=== PATIENT | male | born 1965 | race Two or more races ===

== ENCOUNTER 2023-07-25 17:55 | Emergency (ER) | payer MEDICAID, SELFPAY ==
--- NOTE | ~2023-07-25 | XR_ITS ---
EXAMINATION: XR HAND, LEFT CLINICAL INFORMATION: lt index finger injury; pt states had a nail go through his finger. pt had a bandaged wrapped on first and second digit. COMPARISON: None available. TECHNIQUE: PA, lateral, and oblique views of the left hand. FINDINGS: The bones and soft tissues are normal. No fracture. No radiopaque foreign body. Alignment is anatomic. Joint spaces are maintained. No erosions or soft tissue calcifications. Ring obscures evaluation of the fourth digit proximal phalanx. XR/XR hand LT 2V IMPRESSION: No acute fracture or dislocation. No radiopaque foreign body.
[2023-07-25 18:03] VITALS: BP 135/69; PULSE 73; RESP 18; TEMP 36.6; O2SAT 96; BMI 34.5
--- NOTE | 2023-07-25 18:28 | ED_ITS ---
HPI - Extremity Problem General Chief complaint: Extremity Injury, Upper Stated complaint: nail through finger Time Seen by Provider: 07/25/23 18:27 Source: patient Mode of arrival: ambulatory Limitations: no limitations History of Present Illness HPI Narrative: Patient is a 58 year old assigned male at with no reported medical history presenting to the emergency department today with a left index finger injury. Patient states that he was using a nail gun and it into the left index finger, requiring him to remove it. Patient states that he does not know when his last tetanus shot was. Patient denies any dizziness, lightheadedness, abdominal pain, nausea, vomiting, fever, chills, blurry vision, double vision, loss of vision, chest pain, difficulty breathing, shortness of breath, back pain, night sweats, pain with urination, increased urinary frequency, increased urinary urgency, blood in his urine or stool, syncope or a near syncopal episode, bowel incontinence, bladder incontinence, bowel retention, bladder retention, or any other complaints at this time. MD Complaint: extremity pain Onset (ago): minute(s) Pain Consistency: constant Location: left and other (2nd digit) Severity scale (1-10): 3 Relieving factors: nothing Exacerbating factors: nothing Associated symptoms: denies other symptoms Related Data Previous Rx's ?Medication ?Instructions ?Recorded amoxicillin 875 mg-potassium 1 tab PO BID 10 days #20 tabs 07/25/23 clavulanate 125 mg tablet Allergies Allergy/AdvReac Type Severity Reaction Status Date / Time doxycycline Allergy Intermediate Hives Verified 07/25/23 18:04 Review of Systems 2 Constitutional: Constitutional: Reports no additional constitutional complaints, Denies chills, Denies fever(s) and Denies night sweats Eyes: Eyes: Reports no additional eye complaints, Denies blurry vision, Denies change in vision, Denies diplopia, Denies eye discharge, Denies loss of vision and Denies eye pain ENT: Denies dizziness Cardiovascular: Cardiovascular: Reports no additional cardiovascular complaints, Denies chest pain, Denies lightheadedness, Denies Loss of Consciousness and Denies dyspnea Respiratory: Respiratory: Reports no additional respiratory complaints and Denies dyspnea Gastrointestinal: Gastrointestinal: Reports no additional gastrointestinal complaints, Denies abdominal pain, Denies melena, Denies hematochezia, Denies change in bowel habits and Denies change in stool character Genitourinary: Genitourinary: Reports no additional male genitourinary complaints, Denies hematuria, Denies oliguria, Denies difficulty urinating, Denies dysuria, Denies urinary frequency, Denies urinary hesitancy, Denies urinary incontinence and Denies urinary urgency Musculoskeletal: Musculoskeletal: Reports no additional musculoskeletal complaints, Denies numbness and Denies tingling Comments: puncture wound to the left index finger Neurologic: Denies dizziness, Denies loss of vision, Denies numbness and Denies tingling Psychiatric: Psychiatric: Reports no additional psychiatric complaints Endocrine: Endocrine: Reports no additional endocrine complaints Hematologic/Lymphatic: Hematologic/Lymphatic: Reports no additional hematologic/lymphatic complaints Allergic/Immunologic: Allergic/Immunologic: Reports no additional allergic/immunologic complaints PMFSH Past Medical History Attestation statement: The following information was validated with the patient. Source: old records reviewed and nursing notes reviewed Social History Social History Advance Directives: No Advance Directives Information Provided: No Do you have a plan to hurt others: No Plan Physical Exam 2 Vital Signs: Vital Signs: Last Vital Signs Temp 98.2 F 07/25/23 20:34 Pulse 72 07/25/23 20:34 Resp 17 07/25/23 20:34 BP 123/64 07/25/23 20:34 Pulse Ox 95 07/25/23 20:34 O2 Del Method Room Air 07/25/23 20:34 BMI result Body Mass Index 34.5 Const: General: cooperative, no acute distress, alert and awake Nutritional Appearance: well nourished Orientation/consciousness: patient oriented x3 Limitations: no limitations HEENT: Head: Yes normal to inspection and Yes atraumatic Ears: hearing grossly normal bilaterally and external ears normal General nose exam: Normal external nose present, no nasal discharge noted and no epistaxis Face and sinus: Yes normal facial exam, No abrasion and No laceration Mouth: Normal oral and palatal mucosa present, no drooling and no muffled voice Eyes: General: appearance normal, both eyes and all related structures P eriorbital: periorbital findings normal Eyelids: Yes eyelids normal C onjunctivae: conjunctivae normal Pupils: Equal, round and reactive pupils present EOM: EOMs intact bilaterally Neck: Neck: Yes normal visual inspection, Yes full ROM and Yes no lymphadenopathy Chest: Chest palpation & inspection: normal inspection of the chest Resp: Effort & Inspection: normal respiratory effort and able to speak in complete sentences GI: Inspection: Yes normal to inspection Neuro: General: patient oriented x3 and moves all extremities Cranial nerves: Yes Equal, round and reactive pupils present Cognition (Neuro): n ormal cognition Motor exam (neuro): 5/5 motor strength present throughout Sensory Exam: Normal double simultaneous stimulation for sensation C oordination: [id number] test normal Extrem: General: Yes full ROM and Yes capillary refill normal Hand/finger images: 1. small puncture wound, no active bleeding, no gaping Psych: Appearance: grossly normal Mental Status: mental status grossly normal Affect: normal affect Attitude: cooperative Thought process: N ormal thought process present Thought content: Normal thought content present Insight: Good insight present (Psych) Medications Administered Discontinued Medications Generic Name Dose Route Start Last Admin Trade Name Freq PRN Reason Stop Dose Admin Acetaminophen 975 mg 07/25/23 20:18 07/25/23 20:26 Acetaminophen 325 Mg Tablet PO 07/25/23 20:19 975 mg ONCE ONE Administration Diphtheria/Tetanus/Acell Pertussis 0.5 ml 07/25/23 18:26 07/25/23 19:20 Diphth,Pertus(Acell),Tet Adult 0.5 Ml Syringe IM 07/25/23 18:27 0.5 ml .ONCE ONE Administration Medical Decision Making Medical Decision Making MDM Narrative: Patient is a 58 year old assigned male at with no reported medical history presenting to the emergency department today with a left 2nd digit injury. Patient's physical exam showed a small puncture wound to the left index finger with no active bleeding or gaping. The nail did not go through, there was no exit wound. Patient's right hand x-ray showed no acute process. I explained my physical exam findings as well as all test results to the patient. I answered all questions asked by the patient. I stressed the importance of the patient taking his medication as prescribed. I stressed the importance of the patient following up with his primary care provider. I stressed the importance of the patient returning to the emergency department immediately if his symptoms were to worsen or if he were to develop any dizziness, shortness of breath, difficulty breathing, chest pain, blurry vision, loss of vision, nausea, vomiting, abdominal pain, fever, chills, back pain, or any other complaints. Patient verbalized agreement and understanding with this treatment plan and discharge. Differential Diagnosis Differential Diagnoses: The differential diagnosis associated with the presentation includes Left index finger injury Puncture wound Abrasion Avulsion Laceration Admission/Observation Consideration of admission/observation: Escalation of care including admission/observation considered Patient would have been admitted to the hospital had his work up had any findings where hospital admission was appropriate and his clinical presentation warranted hospital admission. Independent Interpretation I performed an independent interpretation of an: Plain X-Ray Interpretation: My interpretation is in agreement with the radiologist's impression of this imaging study. - EXAMINATION: XR HAND, LEFT CLINICAL INFORMATION: lt index finger injury; pt states had a nail go through his finger. pt had a bandaged wrapped on first and second digit. COMPARISON: None available. TECHNIQUE: PA, lateral, and oblique views of the left hand. FINDINGS: The bones and soft tissues are normal. No fracture. No radiopaque foreign body. Alignment is anatomic. Joint spaces are maintained. No erosions or soft tissue calcifications. Ring obscures evaluation of the fourth digit proximal phalanx. XR/XR hand LT 2V IMPRESSION: No acute fracture or dislocation. No radiopaque foreign body. Dictated By: Kristi Webster Signed By: Electronically signed by Kristi Webster 07/25/232018 Radiology Impression Discussion of test interpretation with radiology: I have reviewed the radiologist's reading. Prescription Management I considered prescription management with: Antibiotic (given the mechanism of injury, patient prescribed a prophylactic antibiotic) Discharge Plan Discharge Clinical Impression: Finger laceration Patient Disposition: Home, Self-Care Instructions: Finger Laceration (ED), Laceration Without Closure (ED) Additional Instructions: Take your antibiotic as prescribed. Follow up with your primary care provider. Return to the emergency department immediately if your symptoms worsen or if you develop any dizziness, shortness of breath, difficulty breathing, chest pain, blurry vision, loss of vision, nausea, vomiting, abdominal pain, fever, chills, back pain, or any other complaints. Prescriptions: New amoxicillin-pot clavulanate 875-125 mg tablet 1 tab PO BID 10 Days Qty: 20 0RF Referrals: [facility] [place] Family Medicine [Provider Group] (Call to establish and follow up with a primary care provider. If you already have a primary care provider, please follow up with them.) [facility] [place] [facility] [Provider Group] [facility] [place] [facility] [Provider Group] Stand Alone Forms: Work/School Release Interventions: ED Discharge Assessment Last Done: 07/25/23 20:34 Discharge Date/Time: 07/25/23 20:34 Print Language: Kiswahili
[2023-07-25] MEDS: Diphth,Pertus(ACell),Tet Adult 0.5 ML SYRINGE IM (19:20)
[2023-07-25] MEDS: Acetaminophen 325 MG TABLET 975 MG PO (20:26)
[2023-07-25 20:33] VITALS: BP 123/64; PULSE 72; RESP 17; TEMP 36.8; O2SAT 95
[2023-07-25 20:34] VITALS: BP 123/64; PULSE 72; RESP 17; TEMP 36.8; O2SAT 95
== END 2023-07-25 20:34 | disposition home or self-care (01) ==
PROVIDERS: Emergency Provider Internal Medicine
DX: S61.231A Puncture wound without foreign body of left index finger without damage to nail, initial encounter (principal); W29.4XXA Contact with nail gun, initial encounter; Y93.9 Activity, unspecified; Y92.9 Unspecified place or not applicable; Y99.9 Unspecified external cause status
CPT/HCPCS: 73120; 90471; 90715; 99284

== ENCOUNTER 2024-01-01 14:47 | Emergency (ER) | payer MEDICAID, SELFPAY ==
--- NOTE | ~2024-01-01 | CT_ITS ---
EXAMINATION: CT HEAD WITHOUT CONTRAST CT CERVICAL SPINE WITHOUT CONTRAST CLINICAL INFORMATION: Fall with head injury and pain COMPARISON: None TECHNIQUE: A noncontrast CT of the head and a noncontrast CT of the cervical spine with sagittal and coronal reformats. This CT examination was performed using dose optimization techniques as appropriate, variously including the following: *Automated exposure control *Adjustment of mA and/or kV according to patient size (this includes techniques or standardized protocols for targeted exams where dose is matched to indication/reason for exam; i.e. extremities or head) *Use of iterative reconstruction technique DLP: 710 and 812 mGy*cm FINDINGS: No intra-axial or extra-axial hemorrhage. No acute territorial infarct. Ventricles and sulci appear normal. Preservation of hanson-white matter differentiation. No mass, mass effect, or midline shift. No fracture. The mastoid air cells and visualized paranasal sinuses are clear. Normal alignment of the cervical spine. No fracture. No prevertebral soft tissue swelling. Moderate degenerative disc disease at C6-C7 and mild degenerative disc disease at C4-C5 and C5-C6. 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 Multilevel facet arthrosis, most prominent on the right at C4-C5. CT/CT head/brain wo IV con IMPRESSION: 1. No acute intracranial abnormality. 2. No cervical spine fracture or traumatic subluxation. Electronically signed by: Sidney Ybarra MD 01/01/2024 03:37 PM EDT
--- NOTE | ~2024-01-01 | XR_ITS ---
EXAMINATION: XR FOREARM, LEFT. XR TIBIA AND FIBULA, RIGHT. CLINICAL INFORMATION: Pain, injury COMPARISON: None. TECHNIQUE: AP and lateral views of the left forearm. AP and lateral views of the right lower leg. FINDINGS: Left forearm: No acute fracture or malalignment. There is an enthesophyte of the olecranon at the triceps tendon insertion. No radiopaque foreign body. Right tibia and fibula: No fracture or malalignment. No radiopaque foreign body. XR/XR tibia fibula RT 2V IMPRESSION: No acute osseous abnormality of the left forearm or right lower leg. Electronically signed by: Sidney Ybarra MD 01/01/2024 03:39 PM EDT
--- NOTE | ~2024-01-01 | CT_ITS ---
EXAMINATION: CT HEAD WITHOUT CONTRAST CT CERVICAL SPINE WITHOUT CONTRAST CLINICAL INFORMATION: Fall with head injury and pain COMPARISON: None TECHNIQUE: A noncontrast CT of the head and a noncontrast CT of the cervical spine with sagittal and coronal reformats. This CT examination was performed using dose optimization techniques as appropriate, variously including the following: *Automated exposure control *Adjustment of mA and/or kV according to patient size (this includes techniques or standardized protocols for targeted exams where dose is matched to indication/reason for exam; i.e. extremities or head) *Use of iterative reconstruction technique DLP: 710 and 812 mGy*cm FINDINGS: No intra-axial or extra-axial hemorrhage. No acute territorial infarct. Ventricles and sulci appear normal. Preservation of hanson-white matter differentiation. No mass, mass effect, or midline shift. No fracture. The mastoid air cells and visualized paranasal sinuses are clear. Normal alignment of the cervical spine. No fracture. No prevertebral soft tissue swelling. Moderate degenerative disc disease at C6-C7 and mild degenerative disc disease at C4-C5 and C5-C6. 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 Multilevel facet arthrosis, most prominent on the right at C4-C5. CT/CT cervical spine wo IV con IMPRESSION: 1. No acute intracranial abnormality. 2. No cervical spine fracture or traumatic subluxation. Electronically signed by: Sidney Ybarra MD 01/01/2024 03:37 PM EDT
--- NOTE | ~2024-01-01 | XR_ITS ---
EXAMINATION: XR FOREARM, LEFT. XR TIBIA AND FIBULA, RIGHT. CLINICAL INFORMATION: Pain, injury COMPARISON: None. TECHNIQUE: AP and lateral views of the left forearm. AP and lateral views of the right lower leg. FINDINGS: Left forearm: No acute fracture or malalignment. There is an enthesophyte of the olecranon at the triceps tendon insertion. No radiopaque foreign body. Right tibia and fibula: No fracture or malalignment. No radiopaque foreign body. XR/XR forearm LT 2V IMPRESSION: No acute osseous abnormality of the left forearm or right lower leg. Electronically signed by: Sidney Ybarra MD 01/01/2024 03:39 PM EDT
[2024-01-01 14:50] VITALS: BP 111/62; PULSE 60; RESP 18; TEMP 36.6; O2SAT 97; BMI 33.3
--- NOTE | 2024-01-01 14:50 | ED.GENADULT ---
HPI - General Adult General Chief complaint: Fall Stated complaint: arm lac, leg pain Time Seen by Provider: 01/01/24 15:33 Source: patient Mode of arrival: ambulatory Limitations: no limitations History of Present Illness ED Provider: Maria Elena Barriga APRN HPI narrative: 58 yo male with no known medical history here with multiple complaints after a fall off a ladder. He was using a chainsaw to cut a branch when the branch broke and he lost his balance falling backwards off a 4 foot ladder. He hit his posterior head. No LOC. Complaining of right leg pain, right forearm pain and left forearm pain with laceration. Tetanus is UTD. NO headache,neck pain, back pain, chest pain, abdominal pain, numbness/weakness/tingling of extremities. Patient is ambulatory. Related Data Previous Rx's ?Medication ?Instructions ?Recorded amoxicillin 875 mg-potassium 1 tab PO BID 10 days #20 tabs 07/25/23 clavulanate 125 mg tablet cephalexin 500 mg capsule 500 mg PO BID #14 caps 01/01/24 Allergies Allergy/AdvReac Type Severity Reaction Status Date / Time doxycycline Allergy Intermediate Hives Verified 01/01/24 14:52 Review of Systems Review of Systems: Yes all other systems are reviewed and are negative Constitutional: Constitutional: Reports no additional constitutional complaints, Denies body ache(s), Denies chills, Denies fever(s), Denies headache(s) and Denies weakness Eyes: Eyes: Reports no additional eye complaints and Denies change in vision ENT: Reports system reviewed and no additional complaints, except as documented, Denies dizziness, Denies headache(s), Denies nasal congestion, Denies nasal discharge and Denies neck pain Cardiovascular: Cardiovascular: Reports no additional cardiovascular complaints, Denies chest pain, Denies leg edema and Denies dyspnea Respiratory: Respiratory: Reports no additional respiratory complaints, Denies cough and Denies dyspnea Gastrointestinal: Gastrointestinal: Reports no additional gastrointestinal complaints, Denies abdominal pain, Denies diarrhea, Denies nausea and Denies vomiting Genitourinary: Genitourinary: Denies urinary incontinence Musculoskeletal: Musculoskeletal: Reports no additional musculoskeletal complaints, Denies back pain, Reports arthralgias, Denies joint swelling, Denies neck pain, Denies numbness and Denies tingling Integumentary/Breasts: Skin/Breast: Reports system reviewed and no additional complaints, except as docu, Denies rash and Reports wounds Neurologic: Reports system reviewed and no additional complaints, except as documented, Denies Abnormal speech present, Denies dizziness, Denies headache(s), Denies numbness, Denies tingling and Denies weakness PMFSH Past Medical History Attestation statement: The following information was validated with the patient. Source: old records reviewed and nursing notes reviewed Social History Social History Advance Directives: No Advance Directives Information Provided: No Do you have a plan to hurt others: No Plan Physical Exam ED Vital Signs: Vital Signs - 24 hr 01/01/24 14:50 01/01/24 16:42 Temperature 97.9 F 97.8 F Pulse Rate 60 54 Respiratory Rate 18 16 Blood Pressure 111/62 122/62 Pulse Oximetry 97 96 Oxygen Delivery Method Room Air Room Air BMI result Body Mass Index 33.3 Const General: cooperative, healthy appearing, comfortable and no acute distress Orientation/consciousness: patient oriented x3 Limitations: no limitations HENMT Head: Yes normal to inspection, No [place]'s sign and No raccoon eyes Ears: hearing grossly normal bilaterally and TM's normal bilaterally General nose exam: Normal external nose present Face and sinus: Yes normal facial exam Mouth: Normal oral and palatal mucosa present Throat: Yes posterior oropharynx normal Eyes General: appearance normal, both eyes and all related structures Pupils: Equal, round and reactive pupils present Neck Other: No midline tenderness/step offs or deformities. Neck: Yes normal visual inspection and Yes full ROM Chest Chest palpation & inspection: normal inspection of the chest Resp Effort & Inspection: normal respiratory effort Auscultation: clear to auscultation bilaterally Cardio Rate: regular rate Rhythm: regular rhythm Peripheral pulses: Peripheral pulses 2+ throughout GI Inspection: Yes normal to inspection Palpation (GI): Soft to palpation and nontender Auscultation: normal bowel sounds General: Yes no CVA tenderness Back/Spine/Pelvis Back: no CVA tenderness Thoracic/Lumbar Spine: thoracic and lumbar spine normal to inspection Skin General skin exam: no rashes or lesions noted Neuro General: patient oriented x3, moves all extremities, no focal motor deficits and normal sensation to monofilament Cranial nerves: Yes CN's II-XII intact bilaterally, Yes Equal, round and reactive pupils present, Yes Bilaterally intact EOM present, Yes Nystagmus not present, Yes Normal facial strength present and Yes Midline tongue present Cognition (Neuro): normal cognition Speech: No Abnormal speech present Gait exam (Neuro): Normal gait present Motor exam (neuro): 5/5 motor strength present throughout Sensory Exam: Normal double simultaneous stimulation for sensation Extrem Elbow/forearm/wrist images: 1. abrasions 2. 3cm laceration. Bleeding controlled. FROM of proximal/distal joints. CMS intact distally. 2+ radial/ulnar pulses Upper/lower leg/hip images: 1. +ecchymosis. Compartment soft/compressible. FROM of proximal/distal joints. CMS intact distally. 2+ DP/PT pulses Course Course Course Narrative: RME performed by Oralia Mckee PA-C. Patient is a 58 year old assigned male at presenting to the emergency department with right leg pain, headache, and left arm pain. Patient states that he was in a tree doing some work with a chain saw and fell, hitting his head, his left arm, and his right lower leg. Detailed physical exam and review of systems are deferred to the independent marketing consultant. Imaging ordered. Patient placed back in the waiting room pending room availability and results. Medications Administered Discontinued Medications Generic Name Dose Route Start Last Admin Trade Name Freq PRN Reason Stop Dose Admin Ibuprofen 600 mg 01/01/24 15:36 01/01/24 15:38 Ibuprofen 600 Mg Tablet PO 01/01/24 15:37 600 mg ONCE ONE Administration Lidocaine HCl 2 ml 01/01/24 16:08 01/01/24 16:18 Lidocaine Hcl 1 % Mpf 2 Ml Vial INFILTRATI 01/01/24 16:09 2 ml ONCE ONE Administration Lidocaine HCl 2 ml 01/01/24 16:08 01/01/24 16:18 Lidocaine Hcl 1 % Mpf 2 Ml Vial INFILTRATI 01/01/24 16:09 2 ml ONCE ONE Administration Procedures Laceration Laceration 1: Site: upper extremity Side (If applicable): left Size (cm): 3 Description: irregular and contaminated Depth: simple, single layer Local Anesthetic: lidocaine 1% Amount of anesthesia used (mL): 5 Pre-repair: wound explored and irrigated extensively (1L NS) Skin layer closed with: vicryl Size (cm): 5-0 Number of sutures: 5 Technique: simple, interrupted Medical Decision Making Medical Decision Making MDM Narrative: 58 yo male with no known medical history here with multiple complaints after a fall off a ladder. He was using a chainsaw to cut a branch when the branch broke and he lost his balance falling backwards off a 4 foot ladder. He hit his posterior head. No LOC. Complaining of [place], right leg pain, right forearm pain and left forearm pain with laceration. Tetanus is UTD. NO neck pain, back pain, chest pain, abdominal pain, numbness/weakness/tingling of extremities. Patient is ambulatory. +various abrasions/area of ecchymosis with soft/compressible compartments and normal CMS. +laceration to left FA Will obtain CT head/ct cervical spine, x-rays of tib/fibula and FA Differential Diagnosis Differential Diagnoses: The differential diagnosis associated with the presentation includes Abrasions, contusion, laceration, retained foreign body Low suspicion for vascular injury, ICH, skull fracture, cervical fracture Admission/Observation Consideration of admission/observation: Escalation of care including admission/observation considered Low suspicion for vascular injury, ICH, skull fracture, cervical fracture requiring advanced imaging, transfer to tertiary care center Independent Interpretation I performed an independent interpretation of an: Plain X-Ray and CT Scan Interpretation: I independently reviewed the CT scan of the x-ray and agree with the radiology report Radiology Impression Discussion of test interpretation with radiology: I have reviewed the radiologist's reading. Radiologist Impression: [place] [id number] CT Scan Report Signed Patient: Alexis Monahan MR#: [id number] : 1965 Acct:[id number] Age/Sex: 58 / M ADM Date: 01/01/24 Loc: HO.ED Attending Dr: Ordering Physician: Oralia Mckee Date of Service: 01/01/24 Procedure(s): CT cervical spine wo IV con Accession Number(s): [id number] cc: Oralia Mckee; Physician,None ~ EXAMINATION: CT HEAD WITHOUT CONTRAST CT CERVICAL SPINE WITHOUT CONTRAST CLINICAL INFORMATION: Fall with head injury and pain COMPARISON: None TECHNIQUE: A noncontrast CT of the head and a noncontrast CT of the cervical spine with sagittal and coronal reformats. This CT examination was performed using dose optimization techniques as appropriate, variously including the following: *Automated exposure control *Adjustment of mA and/or kV according to patient size (this includes techniques or standardized protocols for targeted exams where dose is matched to indication/reason for exam; i.e. extremities or head) *Use of iterative reconstruction technique DLP: 710 and 812 mGy*cm FINDINGS: No intra-axial or extra-axial hemorrhage. No acute territorial infarct. Ventricles and sulci appear normal. Preservation of hanson-white matter differentiation. No mass, mass effect, or midline shift. No fracture. The mastoid air cells and visualized paranasal sinuses are clear. Normal alignment of the cervical spine. No fracture. No prevertebral soft tissue swelling. Moderate degenerative disc disease at C6-C7 and mild degenerative disc disease at C4-C5 and C5-C6. 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 Multilevel facet arthrosis, most prominent on the right at C4-C5. CT/CT cervical spine wo IV con IMPRESSION: 1. No acute intracranial abnormality. 2. No cervical spine fracture or traumatic subluxation. Electronically signed by: Sidney Ybarra MD 01/01/2024 03:37 PM EDT [place] [id number] XRay Report Signed Patient: Alexis Monahan MR#: [id number] : 1965 Acct:[id number] Age/Sex: 58 / M ADM Date: 01/01/24 Loc: HO.ED Attending Dr: Ordering Physician: Oralia Mckee Date of Service: 01/01/24 Procedure(s): XR forearm LT 2V Accession Number(s): [id number] cc: Oralia Mckee; Physician,None ~ EXAMINATION: XR FOREARM, LEFT. XR TIBIA AND FIBULA, RIGHT. CLINICAL INFORMATION: Pain, injury COMPARISON: None. TECHNIQUE: AP and lateral views of the left forearm. AP and lateral views of the right lower leg. FINDINGS: Left forearm: No acute fracture or malalignment. There is an enthesophyte of the olecranon at the triceps tendon insertion. No radiopaque foreign body. Right tibia and fibula: No fracture or malalignment. No radiopaque foreign body. XR/XR forearm LT 2V IMPRESSION: No acute osseous abnormality of the left forearm or right lower leg. Independent Historian Clinical information obtained from an independent historian. History obtained from or confirmed by: Friend Tests considered The following testing was considered but not selected: Low suspicion for vascular injury, ICH, skull fracture, cervical fracture requiring advanced imaging Prescription Management I considered prescription management with: Antibiotic Discharge Plan Discharge Clinical Impression: Laceration of arm, Contusion of leg, right, Abrasion of arm, right Patient Disposition: Home, Self-Care Instructions: Laceration (ED), Contusion in Adults (ED), Abrasion (ED) Additional Instructions: Sutures out in 7-10 days Ice to the affected areas Motrin or Tylenol for pain as needed Return for any severe headache, vomiting, behavior Prescriptions: New cephalexin 500 mg capsule 500 mg PO BID Qty: 14 0RF No Action amoxicillin-pot clavulanate 875-125 mg tablet 1 tab PO BID 10 Days Qty: 20 0RF Referrals: Physician,None [Primary Care Provider] - 1 week Interventions: ED Discharge Assessment Last Done: 01/01/24 16:46 Print Language: Hebrew
[2024-01-01] MEDS: Ibuprofen 600 MG TABLET PO (15:38)
--- NOTE | 2024-01-01 15:39 | PC.NURSE ---
pt a&ox3, c/o lt leg/rt arm pain 6/10 pain, denies head pain.
[2024-01-01] MEDS: Lidocaine HCl 1 % MPF 2 ML VIAL INFILTRATI ×2 (16:18)
--- NOTE | 2024-01-01 16:19 | PC.NURSE ---
povider to administer lido into wound
[2024-01-01 16:42] VITALS: BP 122/62; PULSE 54; RESP 16; TEMP 36.6; O2SAT 96
[2024-01-01 16:46] VITALS: BP 118/63; PULSE 58; RESP 16; TEMP 36.4; O2SAT 96
== END 2024-01-01 16:47 | disposition home or self-care (01) ==
PROVIDERS: Emergency Provider Emergency Medicine
DX: S51.812A Laceration without foreign body of left forearm, initial encounter (principal); S80.11XA Contusion of right lower leg, initial encounter; S40.811A Abrasion of right upper arm, initial encounter; W11.XXXA Fall on and from ladder, initial encounter; Y93.H9 Activity, other involving exterior property and land maintenance, building and construction; Y92.017 Garden or yard in single-family (private) house as the place of occurrence of the external cause; Y99.9 Unspecified external cause status
CPT/HCPCS: 12002; 70450; 72125; 73090; 73590; 99284; J2003

== ENCOUNTER 2024-03-10 13:30 | Outpatient (REF) | payer MEDICAID, SELFPAY | END 2024-03-10 13:31 | disposition home or self-care (01) | LOC: HO.HHCX 13:30 | PROVIDERS: PCP Internal Medicine Geriatric Medicine; Visit Provider Internal Medicine Geriatric Medicine | DX: M25.571 Pain in right ankle and joints of right foot (principal); M54.50 Low back pain, unspecified; G89.29 Other chronic pain | CPT/HCPCS: 72110; 73600 ==

== ENCOUNTER 2024-03-10 13:59 | Outpatient (REF) | payer MEDICAID, SELFPAY ==
[2024-03-10 16:09] LABS: Imm Gran Abs Auto 0.01 X10*3/uL (0.00-0.03); Imm Gran Pct Auto 0.2 % (0.0-0.4); Lymphocytes Absolute Auto 1.1 X10*3/uL (1.2-4.9); MANUAL DIFF FLAG SCAN; PLT CLUMP 1; Red Blood Count 4.29 X10*6/uL (4.60-5.80); SCAN SMEAR FLAG 1
[2024-03-10 16:11] LABS: Basophils Percent Auto 0.4 % (0-2); Eosinophils Absolute Auto 0.4 X10*3/uL (0.0-0.4); Eosinophils Percent Auto 8.2 % (0-4); Hematocrit 37.4 % (42.0-52.0); Hemoglobin 13.8 g/dl (14.0-18.0); Lymphocytes Percent Auto 20.9 % (20-40); Mean Corpuscular HGB Conc 36.9 g/dl (31.0-36.0); Mean Corpuscular Hemoglobin 32.2 pg (27.0-33.0); Mean Corpuscular Volume 87.2 fL (80.0-98.0); Mean Platelet Volume 12.2 fL (9.4-12.4); Monocytes Absolute Auto 0.4 X10*3/uL (0.1-1.2); Monocytes Percent Auto 6.8 % (2-11); Neutrophils Absolute Auto 3.3 x10*3/uL (2.0-8.3); Neutrophils Percent Auto 63.5 % (45-73); Red Cell Distribution Width 12.6 % (11.0-16.0)
[2024-03-10 16:23] LABS: Alanine Aminotransferase 27 U/L (0-40); Albumin Level 4.2 g/dL (3.5-5.0); Alkaline Phosphatase 105 U/L (39-117); Anion Gap 7 (12-20); Aspartate Amino Transferase 38 U/L (5-37); Bilirubin Total 1.1 mg/dL (0.0-1.0); Blood Urea Nitrogen 11 mg/dL (9-16); Calcium 8.9 mg/dL (8.4-10.2); Carbon Dioxide 31 mmol/L (22-29); Chloride 105 mmol/L (96-108); Cholesterol 125 mg/dL (<200); Estimated Glomerular Filt Rate > 60; Glucose Random 78 mg/dL (60-115); HDL Cholesterol 58 mg/dL (>40); LDL Cholesterol Calculated 58 mg/dL (<100); Potassium 4.1 mmol/L (3.3-5.1); Sodium 139 mmol/L (135-145); Total Protein 7.3 g/dL (6.5-8.0); Triglycerides 47 mg/dL (<150)
[2024-03-10 16:39] LABS: Platelet Count 71 X10*3/uL (160-400); White Blood Count 5.1 X10*3/uL (4.8-10.8)
[2024-03-10 16:40] LABS: SLIDE REVIEW VERIFIED
[2024-03-10 16:42] LABS: Prostate Specific Antigen 0.16 ng/mL (<0.05-4.0)
[2024-03-10 22:34] LABS: CT PCR NOT DETECTED (Not Detect.); NG PCR NOT DETECTED (Not Detect.)
[2024-03-11 08:42] LABS: Hepatitis A Antibody IgG REACTIVE (Nonreactive); ~Hepatitis A Antibody IgG 11.31 S/CO (0.00-0.99)
[2024-03-11 08:57] LABS: HBS Num1 0.64 mIU/mL (0-7.99); HIV AB/AG Nonreactive (Nonreactive); HIV Num 1 0.17 S/CO (0.00-0.99); Hepatitis B Surface Antigen Negative (Negative); ~Hepatitis B Surface Antibody NONREACTIVE (Nonreactive)
[2024-03-13 12:22] LABS: RPR Rapid Plasma Reagin NON-REACTIVE (NON-REACTIVE)
[2024-03-13 15:23] LABS: HCV Log PCR <1.18 NOT DETECTED Log IU/mL (NOT DETECTED); HepC Viral Load <15 NOT DETECTED IU/mL (NOT DETECTED)
[2024-03-16 11:57] LABS: Testosterone, Total 315 ng/dL (250-1100)
== END 2024-03-10 14:00 | disposition home or self-care (01) ==
LOC: HO.HHCL 13:59
PROVIDERS: Visit Provider Internal Medicine Geriatric Medicine
DX: F11.20 Opioid dependence, uncomplicated (principal); K46.9 Unspecified abdominal hernia without obstruction or gangrene; F41.8 Other specified anxiety disorders; M54.50 Low back pain, unspecified; G89.29 Other chronic pain; B18.2 Chronic viral hepatitis C; N52.9 Male erectile dysfunction, unspecified; M25.571 Pain in right ankle and joints of right foot; Z98.890 Other specified postprocedural states
CPT/HCPCS: 80053; 80061; 84153; 84403; 85025; 86592; 86706; 86708; 87340; 87389; 87491; 87522; 87591

== ENCOUNTER → 2024-03-20 15:00 | Outpatient (BNVA) | payer MEDICAID, SELFPAY | PROVIDERS: PCP Internal Medicine Geriatric Medicine; Visit Provider Surgery | DX: K43.2 Incisional hernia without obstruction or gangrene (principal) | CPT/HCPCS: 99202 ==

== ENCOUNTER 2024-03-20 15:05 | Outpatient (AMB) | payer MEDICAID, SELFPAY ==
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
[2024-03-20 15:10] VITALS: BP 136/63; BMI 33.3
== END 2024-03-20 15:30 | disposition home or self-care (01) ==
PROVIDERS: PCP Internal Medicine Geriatric Medicine; Visit Provider Surgery
DX: K43.2 Incisional hernia without obstruction or gangrene (principal)
CPT/HCPCS: 99204

== ENCOUNTER 2024-04-21 09:40 | Outpatient (REF) | payer MEDICAID, SELFPAY ==
--- NOTE | ~2024-04-21 | CT_ITS ---
EXAMINATION: CT ABDOMEN AND PELVIS WITHOUT CONTRAST CLINICAL INFORMATION: Preoperative examination for incisional hernia. COMPARISON: None available. TECHNIQUE: Multidetector volumetric imaging was performed from the superior aspect of the liver through the pubic symphysis. Sagittal and coronal reformatted images were obtained on the technologist's workstation. This CT examination was performed using dose optimization techniques as appropriate, variously including the following: *Automated exposure control *Adjustment of mA and/or kV according to patient size (this includes techniques or standardized protocols for targeted exams where dose is matched to indication/reason for exam; i.e. extremities or head) *Use of iterative reconstruction technique FINDINGS: LUNG BASES: The visualized lung bases are unremarkable. LIVER, GALLBLADDER, AND BILIARY TREE: There is a cirrhotic configuration to the liver, with contour lobulation and mildly shrunken appearance. There is a subserosal oval mass arising from segment 6 inferiorly, measuring 2.2 x 2.3 cm in axial plane (series 3, image 18). No definite additional hepatic focal mass. No intrahepatic biliary ductal dilatation. The gallbladder is unremarkable with no evidence of radiopaque gallstones, gallbladder wall thickening, or obvious pericholecystic inflammatory changes. PANCREAS: -Significant atrophy of the head and uncinate process. Otherwise mild atrophy of the body and tail. SPLEEN: -There is splenomegaly, with the spleen measuring 17.2 x 15.0 cm. No focal lesion, within confines of nonenhanced technique. ADRENAL GLANDS: Unremarkable. KIDNEYS AND URETERS: -The kidneys are normal in size, shape, and attenuation. Mild malrotation of the left kidney. No hydronephrosis, hydroureter, or calculi seen. No perinephric stranding. There is a simple exophytic cyst arising from the superior pole of the left kidney measuring 2.2 cm. BLADDER: Unremarkable. GASTROINTESTINAL TRACT: The small and large bowel are unremarkable. The appendix is unremarkable. ABDOMINAL WALL: -There is a supraumbilical midline ventral hernia, containing a nonobstructed, nonincarcerated loop of transverse colon. The hernia sac measures 7.4 cm in transverse by 7.2 cm in craniocaudad dimension. There is a wide diastases. -There is a tiny fat-containing periumbilical hernia just inferior to the larger hernia. -There is a small fat-containing right indirect inguinal hernia. LYMPH NODES: Normal. VASCULAR: -No aortic aneurysm. -There are splenic and splenorenal varices. There are gastric varices. There are small esophageal varices. PELVIC VISCERA: The prostate and seminal vesicles are unremarkable. OSSEOUS STRUCTURES: -No suspicious lytic or blastic bone lesions. -Mild right convex lumbar scoliosis with moderate degenerative spondylosis. Disc vacuum phenomenon noted L1-S1. There are prominent dorsal disc osteophytic complexes at L1-2, L2-3, and smaller at L3-4. These result in severe central canal stenosis at L1-2 and L2-3. -Mild arthritic changes in both hips and SI joints. CT/CT abdomen pelvis wo IV con IMPRESSION: 1. There is a supraumbilical midline ventral hernia containing fat and a loop of nonobstructed transverse colon, with hernia sac measuring 7.4 x 7.2 cm. Just inferior there is a tiny periumbilical hernia containing fat. There is a small moderate size right inguinal indirect fat-containing hernia. 2. Hepatic cirrhosis with varices. There is an exophytic oval mass arising from segment 6 inferiorly, which cannot be characterized further on this exam. Consider correlating with MRI. 3. Splenomegaly. 4. Pancreatic atrophy. 5. Additional ancillary findings as discussed in the body of the report. Electronically signed by: Michael Mercer MD 04/21/2024 10:30 AM JUAN
== END 2024-04-21 09:41 | disposition home or self-care (01) ==
LOC: HO.CT 09:40
PROVIDERS: PCP Internal Medicine Geriatric Medicine; Visit Provider Surgery
DX: K43.2 Incisional hernia without obstruction or gangrene (principal)
CPT/HCPCS: 74176

== ENCOUNTER → 2024-04-21 09:42 | Outpatient (BNV) | payer MEDICAID, SELFPAY | PROVIDERS: PCP Internal Medicine Geriatric Medicine; Visit Provider Radiology Diagnostic Radiology | DX: K43.2 Incisional hernia without obstruction or gangrene (principal) | CPT/HCPCS: 74176 ==

== ENCOUNTER → 2024-04-25 08:56 | Outpatient (BNV) | payer MEDICAID, SELFPAY | PROVIDERS: Admitting Provider Surgery; PCP Internal Medicine Geriatric Medicine; Visit Provider Surgery | DX: K43.2 Incisional hernia without obstruction or gangrene (principal) | CPT/HCPCS: 49595; 99232; 99239; 99499 ==

== ENCOUNTER 2024-05-22 13:05 | Outpatient (AMB) | payer MEDICAID, SELFPAY ==
--- NOTE | 2024-05-22 13:10 | A.OFFVIS_ITS ---
Vital Signs 05/22/24 13:19 Height 5 ft 7 in Weight 196 lb 6 oz BMI 30.8 BP 140/70 H Blood Pressure Location Rt brachial Position Sitting Pulse 71 Intake Visit Reasons: S/P Lg. incisional hernia w/mesh Intake Note: This patient presents for post-op assessment status post large incisional hernia repair with mesh. Pt c/o; reports he was having pain for few days post-op but overall he feels well. 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 incisional hernia w/mesh: Details: He underwent repair of multiple ventral hernias including 1 large ventral hernia with Ventrio mesh last April 25, 2024. He tolerated the procedure well He currently feels well overall. He has good GI functions. [facility] Medical History (Updated 05/22/24 @ 13:18 by Bryce Maloney MD) Incisional hernia Anxiety Depression Back pain Opiate addiction Hepatitis Chronic back pain Surgical History History of incisional hernia repair (~04/25/24) H/O colonoscopy S/P laparotomy Family History Other Family history unknown Social History Household Members: Significant Other Household Members Other:: fiance Housing: House Are you a primary acute care occupational therapist to a significant other at home: No Do you presently have visiting nurse or other home services: Yes (N for methadone) Comment: uses cane on occasion for back issues Patient Tobacco Use Status: Current everyday Tobacco user Tobacco use type: Cigarette Cigarette Packs Per Day: 1 Cigarettes Per Day: 20.0 Years Smoked: 10 Substance Use Type: Marijuana service: No Review of Systems Const Denies chills and Denies fever(s) Card Denies chest pain at rest GI Denies abdominal pain and Denies vomiting Physical Exam Const General: comfortable and no acute distress Resp Effort & Inspection: normal respiratory effort Cardio Rate: regular rate GI Other: Long midline surgical incision is well healed, not infected, repair intact Palpation (GI): Soft to palpation, not firm and no guarding Assessment & Plan Assessment & Plan (1) Incisional hernia: Code(s): K43.2 - Incisional hernia without obstruction or gangrene Category: Medical Plan: Status post repair of multiple incisional hernias including 1 large hernia repaired with a Ventralex mesh. He has 1 long incisional incision. I removed all skin kaiser. The incision is well healed The repair site is intact . I told him to avoid any lifting more than 20 lb for at least another month to decrease the risk of recurrence He can otherwise follow up on a p.r.n. basis. Coding Level of Care Code Global (47156) Diagnoses Incisional hernia K43.2
[2024-05-22 13:19] VITALS: BP 140/70; PULSE 71; BMI 30.8
--- OUTSIDE RECORDS SUMMARY | 2024-05-22 14:54 | XMS_ITS | Encounter Summary ---
Author Organization [employer] Address [address] [facility] [address] [place] [address] Care Team Providers Care Car Varnisher Name Role Phone Name, Praneeth BERGERON Primary Care Provider [phone] Reason for Visit * Reason Comments hospital follow up Encounter Details Date Type Department Care Team ([facility] st Contact Info) Description 05/12/2024 9:30 AM EST Office Visit [facility] [address], [place] [phone] Eulalia Kearney NP [address] [place], [place] [phone] Hospital discharge follow-up (Primary Dx); Constipation, unspecified constipation type; H/O hernia repair Social History Tobacco Use Types Packs/Day Years Used Date Smoking Tobacco: Every Day Cigarettes Alcohol Use Standard Drinks/Week Comments Yes 0 (1 standard drink = 0.6 oz pur e alcohol) 2-3 beers per day Depression Answer Date Recorded Patient Health Questionnaire-9 Score 23 03/09/2024 Patient Health Questionnaire-9 Score 23 03/09/2024 Last PHQ-9: Questionnaire Data Not on file 1 05/10/2023 Housing Stability Answer Date Recorded What is your housing situation today? I do not have housing (Staying with others, in a hotel, in a [place], living outside on the street, on a beach, in a car, or in a park 03/09/[address] you li ve. Do you have problems with any of the following? None of the above 03/09/2024 Food Insecurity Answer Date Recorded Within the past 12 months, y ou worried that your food would run out before you got money to buy more: Often true 02/28/2024 Within the past 12 months,th e food you bought just didn't last and you didn't have enough money to get more: Often true 04/2023 Transportation Answer Date Recorded In the past 12 months, has l ack of transportation kept you from medical appts, meetings, work or from getting things needed for daily living? Yes, it has kept me from non-medical meetings, work, or getting things that I need 03/09/2024 Utilities Answer Date Recorded In the past 12 months, has t he electric, gas, oil or water company threatened to shut off services in your home? I am not sure 03/09/2024 Depression Answer Date Recorded Patient Health Questionnaire-2 Score 6 03/09/2024 Internet Access Answer Date Recorded Internet Access Q1 Yes 02/28/2024 Internet Access Q2 Not on file 02/28/2024 Sex and Gender Information Value Date Recorded Sex Assigned at Male 05/28/2022 9:58 AM EST Legal Sex Male 9:55 AM EST Gender Identity Male 05/28/2022 9:58 AM EST Sexual Orientation Straight 05/28/2022 9: 58 AM EST documented as of this encounter Last Filed Vital Signs Vital Sign Reading Time Taken Comments Blood Pressure 122/66 05/12/2024 10:18 AM EST Pulse 60 05/12/2024 10:18 AM EST Temperature 36.7 ??C (98 ??F) 05/12/2024 10:18 AM EST Respiratory Rate 18 05/12/2024 10:18 AM EST Oxygen Saturation 98% 05/12/2024 10:18 AM EST Inhaled Oxygen Concentration - - Weight 89.8 kg (198 lb) 05/12/2024 10:18 AM EST Height 170.2 cm (5' 7 ) 05/12/2024 10:18 AM EST Body Mass Index 31.01 05/12/2024 10:18 AM EST documented in this encounter Plan of Treatment Upcoming Encounters Date Type Department Care Team (Late st Contact Info) Description 06/14/2024 3:30 PM EDT Office Visit [facility] [address] [place] [address] Name, MD Praneeth [address] [place] [address] documented as of this encounter Visit Diagnoses Diagnosis Hospital discharge follow-up- Primary Other follow-up examination Constipation, unspecified constipation type H/O hernia repair documented in this encounter Additional Health Concerns Assessment Noted Time PHQ-9 Depression Total Score: 23 024 11:56 AM EST documented as of this encounter Care Teams Car Varnisher Relationship Specialty Start Date End Date Name, MD Praneeth [address] [place] [address] PCP - General Internal Medicine 03/09/24 Anjelica Silva Office SecretaryCenter Medical Specialist 04/26/24 documented as of this encounter
--- OUTSIDE RECORDS SUMMARY | 2024-05-22 14:54 | XMS_ITS | Encounter Summary ---
Author Organization [employer] Address [address] [facility] [address] [place] [address] Care Team Providers Care Senior Php Software Developer Name Role Phone Name, Praneeth BERGERON Primary Care Provider [phone] Reason for Visit * Reason Comments Care Coordination [facility] Encounter Details Date Type Department Care Team ([facility] Contact Info) Description 04/26/2024 Telephone [facility] [address] [place] [address] Name, MD Praneeth [address] [place] [address] Care Coordination ([facility] ) Social History Tobacco Use Types Packs/Day Years [...] with others, in a hotel, in a senior care, living outside on the street, on a [...] AM EST documented as of this encounter Progress Notes * Kathrine Mcclure - 04/26/2024 10:03 AM EST PCP Designee has received and reviewed Care Plan from [facility]: Ethnographic Materials Conservator: Anjelica Silva Contact Information: [phone] Care Plan scanned into patient's EHR and notification sent to PCP. documented in this encounter Plan of Treatment Upcoming Encounters Date Type Department Care Team (Late st Contact Info) Description 06/14/2024 3:30 PM EDT Office Visit [facility] [address] [place] [address] Name, MD Praneeth [address] [place] [address] documented as of this encounter Visit Diagnoses Not on filedocumented in this encounter Additional Health Concerns Assessment Noted Time PHQ-9 Depression Total Score: 23 024 11:56 AM EST documented as of this encounter Care Teams Senior Php Software Developer Relationship Specialty Start Date End Date NamePraneeth MD [address] [place] [address] PCP - General Internal Medicine 03/09/24 Anjelica Silva Warehouse Production WorkerFormula Maker 04/26/24 documented as of this encounter
--- OUTSIDE RECORDS SUMMARY | 2024-05-22 14:54 | XMS_ITS | Encounter Summary ---
Author Organization [employer] Address [address] [facility] [address] [place] [address] Care Team Providers Care Product Delivery Specialist Name Role Phone Name, Praneeth BERGERON Primary Care Provider [phone] Reason for Visit * Reason Comments Care Coordination [facility] Encounter Details Date Type Department Care Team (Latest Contact Info) Description 05/10/2024 Patient Outreach [facility] [address] [place] [address] Name, MD Praneeth [address] [place] [address] Care Coordination ([facility]) Social History Tobacco Use Types Packs/Day Years [...] with others, in a hotel, in a long term, living outside on the street, on a [...] as of this encounter Progress Notes * Perla Forbes - 05/10/2024 9:36 AM EST CHW Perla Forbes placed outbound call to patient to follow up on SDOH needs. Patient's name, and address confirmed. Patient states is doing well. Patient stated he received a phone call from [employer] from the referral I submitted, stating that they are going to help with his foodinsecurity, but patient stated they are requiring proof of any diagnosis. CHW will help patient with that info so it can be provided to the program. Patient will call me to after their follow up calltoday. No further questions or concerns. CHW reinforced direct contact information or CM for any additional questions or concerns and extended clinic hours on Mondays and Wednesdays, and Walk-In Urgent Care Located in [facility]. Patient provided with after-hours line for [facility], , which offer nighttime triage service and option to transfer [facility] educational psychology professor [facility]. Patient verbalizes understanding, and able to repeat back to speech writer. A follow up call will be placed within 10 days, patient agrees with plan. documented in this encounter Plan of Treatment Upcoming Encounters Date Type Department Care Team (Late st Contact Info) Description 06/14/2024 3:30 PM EDT Office Visit [facility] [address] [place] [address] Name, MD Praneeth [address] [place] [address] documented as of this encounter Visit Diagnoses Not on filedocumented in this encounter Additional Health Concerns Assessment Noted Time PHQ-9 Depression Total Score: 23 024 11:56 AM EST documented as of this encounter Care Teams Product Delivery Specialist Relationship Specialty Start Date End Date Name, MD Praneeth [address] [place] [id number] PCP - General Internal Medicine 03/09/24 Anjelica Silva Recreation CounselorSmoked Meat Preparer 04/26/24 documented as of this encounter
--- OUTSIDE RECORDS SUMMARY | 2024-05-22 14:54 | XMS_ITS | Encounter Summary ---
Author Organization [employer] Address [address] [facility] 7t [place] [address] Care Team Providers Care Crochet Beader Name Role Phone Name, Praneeth BERGERON Primary Care Provider [phone] Encounter Details Date Type Department Care Team (Late st Contact Info) Description 05/01/2024 Telephone [facility] MEDICINE [address] [place] [address] Amanda Sanchez, RN [address] [place] [address] Social History Tobacco Use Types Packs/Day Years [...] with others, in a hotel, in a custodial, living outside on the street, on a [...] AM EST documented as of this encounter Miscellaneous Notes * Telephone Encounter - Amanda Sanchez RN - 05/01/2024 4:18 PM EST T/C to pt. Advised of need to r/s HDF. Pt agrees to HDF with Blue team provider 05/12/24 at 9:30a. Pt asking about DTA paperwork. Recommended that pt bring paperwork to medical records. documented in this encounter Plan of Treatment Upcoming Encounters Date Type Department Care Team (Late st Contact Info) Description 06/14/2024 3:30 PM EDT Office Visit [facility] MEDICINE [address] [place] [address] Name, MD Praneeth [address] [place] [address] documented as of this encounter Visit Diagnoses Not on filedocumented in this encounter Additional Health Concerns Assessment Noted Time PHQ-9 Depression Total Score: 23 024 11:56 AM EST documented as of this encounter Care Teams Crochet Beader Relationship Specialty Start Date End Date NamePraneeth MD [address] [place] [address] PCP - General Internal Medicine 03/09/24 Anjelica Silva Financial AdvocateLatin Dance Instructor 04/26/24 documented as of this encounter
--- OUTSIDE RECORDS SUMMARY | 2024-05-22 14:54 | XMS_ITS | Encounter Summary ---
Author Organization [employer] Address [address] [facility] 7t [place] [address] Care Team Providers Care Precision Layout Worker Name Role Phone Name, Praneeth BERGERON Primary Care Provider [phone] Reason for Visit * Reason Comments Care Coordination SDOH Encounter Details Date Type Department Care Team (Latest Contact Info) Description 05/04/2024 Patient Outreach [facility] MEDICINE [address] [place] [address] Name, MD Praneeth [address] [place] [address] Care Coordination (SDOH) Social History Tobacco Use [...] with others, in a hotel, in a alf, living outside on the street, on a [...] encounter Progress Notes * Perla Forbes - 05/04/2024 1:11 PM EST CHW Perla Forbes placed call to patient regarding SDOH, patient stated he suffers from food insecurity and often doesn't not have sufficient food for the month. CHW will mail out an updated food pantry list and will also see if qualifies for services through the flex program. CHW send referral and update patient with approval or denial. Patient understood and agreed. documented in this encounter Plan of Treatment Upcoming Encounters Date Type Department Care Team (Late st Contact Info) Description 06/14/2024 3:30 PM EDT Office Visit [facility] MEDICINE [address] [place] [address] Name, MD Praneeth [address] [place] [address] documented as of this encounter Visit Diagnoses Not on filedocumented in this encounter Additional Health Concerns Assessment Noted Time PHQ-9 Depression Total Score: 23 024 11:56 AM EST documented as of this encounter Care Teams Precision Layout Worker Relationship Specialty Start Date End Date Name, MD Praneeth [address] [place] [address] PCP - General Internal Medicine 03/09/24 Anjelica Silva Delivery AnalystElectro Mechanical Technician 04/26/24 documented as of this encounter
--- OUTSIDE RECORDS SUMMARY | 2024-05-22 14:54 | XMS_ITS | Encounter Summary ---
Author Organization [employer] Address [address] [facility] 7t [place] [address] Care Team Providers Care Helper Maintenance Cleaning Name Role Phone Name, Praneeth BERGERON Primary Care Provider [phone] Reason for Visit * Reason Comments Care Coordination SDOH f/u Encounter Details Date Type Department Care Team (Latest Contact Info) Description 05/18/2024 Patient Outreach [facility] MEDICINE [address] [place] [address] Name, MD Praneeth [address] [place] [address] Care Coordination (SDOH f/u) Social History Tobacco Use Types Packs/Day Years [...] with others, in a hotel, in a mcfp, living outside on the street, on a [...] encounter Progress Notes * Perla Forbes - 05/18/2024 10:02 AM EST CHW Perla Forbes placed outbound call to patient to follow up on SDOH needs. Patient's name, and address confirmed. Patient states is doing well. Patient stated he is currently working with [employer], and they are helping him with his nutrition and food resources, patient should receive [employer]eb[employer] card in the mail soon for healthier food options. Patient is really grateful. No further questions or concerns. CHW reinforced direct contact information or CM for any additional questions or concerns and extended clinic hours on Mondays and Wednesdays, and Walk-In Urgent Care Located in [facility]. Patient provided with after-hours line for [facility], , which offer night time triage service and option to transfer to collection advisor provider if needed. Patient verbalizes understanding, and able to repeat back to ad writer. A follow up call willbe placed within 10 days, patient agrees with plan. documented in this encounter Plan of Treatment Upcoming Encounters Date Type Department Care Team (Late st Contact Info) Description 06/14/2024 3:30 PM EDT Office Visit [facility] MEDICINE [address] [place] [address] Name, [place] [address] documented as of this encounter Visit Diagnoses Not on filedocumented in this encounter Additional Health Concerns Assessment Noted Time PHQ-9 Depression Total Score: 23 024 11:56 AM EST documented as of this encounter Care Teams Helper Maintenance Cleaning Relationship Specialty Start Date End Date Name, [place] [address] PCP - General Internal Medicine 03/09/24 Anjelica Silva Manager Labor DeliveryConditioning Coach 04/26/24 documented as of this encounter
--- OUTSIDE RECORDS SUMMARY | 2024-05-22 14:54 | XMS_ITS | Encounter Summary ---
Author Organization [employer] Address [address] [facility] 7 [place] [address] Care Team Providers Care Closer On Name Role Phone Praneeth Vasquez MD Primary Care Provider Reason for Referral * Imaging (Routine) - Authorized Specialty Diagnoses / Procedures Referred By Contac t Referred To Contact Radiology Diagnoses Liver mass Procedures MR Abdomen w/ and w/o Contrast Praneeth Vasquez MD [address] [place] [address] Phone: tel: fax: [address] Phone: tel: fax: Referral ID Status Reason Start Date Expiration Date V isits Requested Visits Authorized [id number] Authorized 04/28/2024 04/28/2025 1 1 Encounter Details Date Type Department Care Team ([facility] st Contact Info) Description 04/27/2024 Telephone [facility] [address] [place], [place] [phone] Praneeth Vasquez MD [address] [place], [place] [phone] Social History Tobacco Use Types Packs/Day Years [...] with others, in a hotel, in a retirement, living outside on the street, on a [...] as of this encounter Miscellaneous Notes * Addendum Note - Praneeth Vasquez MD - 04/28/2024 6:31 AM ESTAddended by: PRANEETH VASQUEZ on: 04/28/2024 06:31 AM Modules accepted: Orders * Telephone Encounter - Praneeth Vasquez MD - 04/28/2024 6:31 AM EST done * Telephone Encounter - Bull Taylor - 04/27/2024 3:41 PM EST Facility is requesting MRI order to be update to MRI Abdomen wwo contrast . Please review and advise . documented in this encounter Plan of Treatment Upcoming Encounters Date Type Department Care Team (Late st Contact Info) Description 06/14/2024 3:30 PM EDT Office Visit [facility] MEDICINE [address] [place] [address] Name, MD Praneeth [address] [place] [address] Scheduled Orders Name Type Priority Associated Diagnoses Orde r Schedule MR Abdomen w/ and w/o Contrast Imaging Routine Liver mass Expected: 04/28/2024, Expires: 04/28/2025 documented as of this encounter Visit Diagnoses Diagnosis Liver mass- Primary Unspecified disorder of liver documented in this encounter Additional Health Concerns Assessment Noted Time PHQ-9 Depression Total Score: 23 024 11:56 AM EST documented as of this encounter Care Teams Closer On Relationship Specialty Start Date End Date Name, MD Praneeth [address] [place] [address] PCP - General Internal Medicine 03/09/24 Anjelica Silva Fashion MarketerMusic Producer 04/26/24 documented as of this encounter
--- OUTSIDE RECORDS SUMMARY | 2024-05-22 14:54 | XMS_ITS | Encounter Summary ---
Author Organization [employer] Address [address] [facility] 7t [place] [address] Care Team Providers Care Chain Sales Consultant Name Role Phone Name, Praneeth BERGERON Primary Care Provider [phone] Reason for Visit * Reason Onset Date Comments Error (VOID this visit) 04/27/2024 Encounter Details Date Type Department Care Team ([facility] st Contact Info) Description 04/27/2024 Telephone [facility] MEDICINE [address] [place] [address] Amanda Sanchez, RN [address] [place] [address] Error (VOID this visit) Social History Tobacco Use Types Packs/Day Years [...] AM EST documented as of this encounter Plan of Treatment Upcoming Encounters Date Type Department Care Team (Late st Contact Info) Description 06/14/2024 3:30 PM EDT Office Visit [facility] MEDICINE [address] [place] [address] Name, MD Praneeth [address] [place] [address] documented as of this encounter Visit Diagnoses Not on filedocumented in this encounter Additional Health Concerns Assessment Noted Time PHQ-9 Depression Total Score: 23 024 11:56 AM EST documented as of this encounter Care Teams Chain Sales Consultant Relationship Specialty Start Date End Date Name, MD Praneeth [address] [place] [address] PCP - General Internal Medicine 03/09/24 Anjelica Silva Suction OperatorBee Raiser 04/26/24 documented as of this encounter
--- OUTSIDE RECORDS SUMMARY | 2024-05-22 14:54 | XMS_ITS | Encounter Summary ---
Author Organization [employer] Address [address] [facility] 7t [place] [address] Care Team Providers Care Audiometrist Name Role Phone Name, Praneeth BERGERON Primary Care Provider [phone] Reason for Visit * Reason Onset Date Comments chartprep 05/02/2024 Encounter Details Date Type Department Care Team ([facility] st Contact Info) Description 05/02/2024 Telephone [facility] MEDICINE [address] [place] [address] Jamison Ellison MA chartprep Social History Tobacco Use Types Packs/Day Years [...] encounter Miscellaneous Notes * Telephone Encounter - Jamison Ellison MA - 05/02/2024 12:14 PM EST Chart Prep Labs: done except Alpha fetoprotein Images: done except MR abdomen Vaccines due: Covid Due, Hep A Due, Hep B Due, Flu Due, and Shingles in pharmacy Due Referrals: Completed Screenings: Colonoscopy Overdue care gaps: Sbirt documented in this encounter Plan of Treatment Upcoming Encounters Date Type Department Care Team (Late st Contact Info) Description 06/14/2024 3:30 PM EDT Office Visit [facility] MEDICINE [address] [place] [address] NamePraneeth MD [address] [place] [address] documented as of this encounter Visit Diagnoses Not on filedocumented in this encounter Additional Health Concerns Assessment Noted Time PHQ-9 Depression Total Score: 23 024 11:56 AM EST documented as of this encounter Care Teams Audiometrist Relationship Specialty Start Date End Date NamePraneeth MD [address] [place] [address] PCP - General Internal Medicine 03/09/24 Anjelica Silva Race Relations ProfessorDriver Retraining Instructor 04/26/24 documented as of this encounter
--- OUTSIDE RECORDS SUMMARY | 2024-05-22 14:54 | XMS_ITS | Encounter Summary ---
Author Organization [employer] Address [address] [facility] 7t [place] [address] Care Team Providers Care Mesh Worker Name Role Phone Name, Praneeth BERGERON Primary Care Provider [phone] Reason for Visit * Reason Onset Date Comments DTA Form 05/18/2024 I called the pat ient, regarding a EAEDC form from the DTA. I asked if he authorizes for sensitive information to be included in the form, because he did not initial the release of information, which would allow for that information to be released. He gave a verbal authorization for the diagnosis of cirrhosis, to be listed on the form. He is requesting to be called, once it is faxed to the DTA. Encounter Details Date Type Department Care Team (Late st Contact Info) Description 05/18/2024 Telephone [facility] MEDICINE [address] [place] [address] Name, MD Praneeth [address] [place] [address] DTA Form (I called the patient, regarding a EAEDC form from the DTA. I asked if he authorizes for sensitive information to be included in the form, because he did not initial the release of information, which would allow for that information to be released. He gave a verbal authorization for the diagnosis of cirrhosis, to be listed on the form. He is requesting to be called, once it is faxed to the DTA.) Social History Tobacco Use Types Packs/Day Years [...] with others, in a hotel, in a fpc, living outside on the street, on a [...] encounter Miscellaneous Notes * Telephone Encounter - Therese Peguero MA - 05/18/2024 11:33 AM EST I called the patient, regarding a EAEDC form from the DTA. I asked if he authorizes for sensitive information to be included in the form, because he did not initial the release of information, which would allow for that information to be disclosed. He gave a verbal authorization for the diagnosis of cirrhosis, to be listed on the form. He is requesting to be called, once it is faxed to the DTA. documented in this encounter Plan of Treatment Upcoming Encounters Date Type Department Care Team (Late st Contact Info) Description 06/14/2024 3:30 PM EDT Office Visit [facility] MEDICINE [address] [place] [address] Name, MD Praneeth [address] [place] [address] documented as of this encounter Visit Diagnoses Not on filedocumented in this encounter Additional Health Concerns Assessment Noted Time PHQ-9 Depression Total Score: 23 024 11:56 AM EST documented as of this encounter Care Teams Mesh Worker Relationship Specialty Start Date End Date Name, MD Praneeth [address] [place] [address] PCP - General Internal Medicine 03/09/24 Anjelica Silva Assisted Living AdministratorAcid Remover 04/26/24 documented as of this encounter
--- OUTSIDE RECORDS SUMMARY | 2024-05-22 14:54 | XMS_ITS | Encounter Summary ---
Author Organization [employer] Address [address] [facility] 7t [place] [address] Care Team Providers Care Hanging Flags Decorator Name Role Phone NamePraneeth MD Primary Care Provider [phone] Reason for Referral * Consultation (Routine) - Authorized Specialty Diagnoses / Procedures Referred By Contmely t Referred To Contact Gastroenterology Diagnoses Cirrhosis of liver without ascites, unspecified hepatic cirrhosis type (CMS/HCC) Liver mass Praneeth Vernon MD [address] [place] [address] Phone: tel: fax: [address] Phone: tel: fax: Referral ID Status Reason Start Date Expiration Date Visits Requested Visits Authorized [id number] Authorized Specialty Services Required 04/27/2024 04/27/2025 6 6 Encounter Details Date Type Department Care Team (Late st Contact Info) Description 04/27/2024 Telephone [facility] MEDICINE [address] [place] [phone] Praneeth Vernon MD [address] [place] [address] [phone] Social History Tobacco Use Types Packs/Day Years [...] with others, in a hotel, in a prison, living outside on the street, on a [...] t he electric, gas, oil or water [employer] threatened to shut off services in your [...] Telephone Encounter - Amanda Sanchez RN - 04/28/2024 9:26 AM EST T/C to pt. Advised of PCP recommendations. Pt agrees to HDF with PCP 05/12/24. Pt agrees to receive Hep B #1 at scheduled HDF. Pt states that he needs PCP to complete DTA form as he is not able to work. Recommended that pt bring form to medical records. Pt reports agreement with plan. Available [facility] [place] scanned into chart by front counter clerk staff. * Telephone Encounter - Praneeth Vernon MD - 04/27/2024 12:32 PM EST I called the patient. We discussed results of recent CT scan of the abdomen. I recommended evaluation with blood work for alpha-fetoprotein and MRI of the abdomen because of the liver mass. Because of the cirrhosis of the liver I recommended referral to GI. I forgot to recommend hepatitis B vaccination. Please contact him so he can come at a later date orwe can do it at his next visit. He was just discharged from the hospital after hernia surgery. Please give him a posthospitalization visit with me or Blue team provider in the coming 1 or 2 weeks. He has appt with me in [place] but that is too far out. documented in this encounter Plan of Treatment Upcoming Encounters Date Type Department Care Team (Late st Contact Info) Description 06/14/2024 3:30 PM EDT Office Visit [facility] MEDICINE [address] [place] [address] Praneeth Vernon MD [address] [place] [address] Scheduled Orders Name Type Priority Associated Diagnoses Orde r Schedule Alpha-Fetoprotein, Tumor Marker Lab Routine Cirrhosis of liver without ascites, unspecified hepatic cirrhosis type (CMS/HCC) Liver mass Expected: 04/27/2024 (Approximate), Expires: 04/27/2025 Scheduled Referrals Name Type Priority Associated Diagnoses Order Schedule Referral to Gastroenterology Outpatient Referral Routine Cirrhosis of liver without ascites, unspecified hepatic cirrhosis type (CMS/HCC) Liver mass Expected: 04/27/2024 (Approximate), Expires: 04/27/2025 documented as of this encounter Visit Diagnoses Diagnosis Cirrhosis of liver without ascites, unspecified hepatic cirrhosis type (CMS/HCC)- Primary Liver mass Unspecified disorder of liver documented in this encounter Additional Health Concerns Assessment Noted Time PHQ-9 Depression Total Score: 23 024 11:56 AM EST documented as of this encounter Care Teams Hanging Flags Decorator Relationship Specialty Start Date End Date Praneeth Vernon MD [address] [place] [address] PCP - General Internal Medicine 03/09/24 Anjelica Silva Bevel Mill OperatorRegional Truck Driver 04/26/24 documented as of this encounter
--- OUTSIDE RECORDS SUMMARY | 2024-05-22 14:55 | XMS_ITS | Clinical Summary ---
Author Organization [employer] Address [address] [facility] [address] [place] [address] Care Team Providers Care Food Service Director Name Role Phone Name, Praneeth BERGERON Primary Care Provider [phone] Allergies Active Allergy Reactions Criticality Noted Date Comments Tetracycline Hives 04/25/2020 Medications * This document contains information received from the source organization and may not represent a complete record from that organization. methadone (Dolophine) 10 MG/5ML solution Take 47 mg by mouth Once per day. Active senna-docusate sodium (Senokot-S) 8.6-50 MG tabletIndications :Constipation, unspecified constipation type Take 1 tablet by mouth Once per day. 30 tablet 1 5 07/12/19 25 Active ibuprofen 600 MG tabletIndications :H/O hernia repair Take 1 tablet (600 mg) by mouth every 6 (six) hours if needed for mild pain. 120 tablet 5 06/12/19 25 Active docusate sodium (Colace) 100 MG capsule Take 1 capsule by mouth 2 times daily. 5 05/12/19 25 Discontinu ed(Alterna te therapy) Active Problems Problem Noted Date Diagnosed Date Cirrhosis of liver without ascites 04/27/2024 Uncomplicated opioid dependence 03/09/2024 Obesity (BMI 30-39.9) 03/11/2022 Tobacco use disorder 03/11/2022 Opioid use disorder 05/01/2020 Chronic hepatitis C without hepatic coma 016 Localized superficial swelling, mass, or lump Sebaceous cyst 09/12/2014 Astigmatism of both eyes 06/27/2014 Preglaucoma 06/27/2014 Presbyopia 06/27/2014 Chronic low back pain 06/20/2014 Overview (03/09/2024): Intermittent to the left buttock, no further Radiculopathy of lumbar region 06/20/2014 Encounters * This document contains information received from the source organization and may not represent a complete record from that organization. Date Type Department Care Team Description 05/18/2024 Telephone [facility] [place] [address] Praneeth Vernon MD DTA Form (I called the patient, regarding [...] once it is faxed to the DTA.) 05/18/2024 Patient Outreach [address] [address] Praneeth Vernon MD Care Coordination (SDOH f/u) 05/12/2024 9:30 AM EST Office Visit [facility] [address] Eulalia Kearney NP Hospital discharge follow-up (Primary Dx); Constipation, unspecified constipation type; H/O hernia repair 05/10/2024 Patient Outreach [address] [address] Praneeth Vernon MD Care Coordination (SDOH) 05/04/2024 Patient Outreach [address] [phone] Praneeth Vernon MD Care Coordination (SDOH) 05/02/[address] [address] Jamison Ellison MA chartprep 05/01/[address] [address] Amanda Sanchez RN 04/27/[address] [address] Amanda Sanchez RN Error (VOID this visit) 04/27/2024 Telephone [facility] [place] [address] Praneeth Vernon MD 04/27/2024 Telephone [facility] MEDICINE [address] [place] [phone] Praneeth Vernon MD 04/26/[address] [address] Praneeth Vernon MD Care Coordination (ICP BH ) 04/21/2024 Orders Only [facility] External Provider, [facility] 04/06/2024 Telephone [facility] MEDICINE [address] [place] [phone] Trini Peterson MA feb recalls 04/03/2024 Patient Outreach [address] [address] Praneeth Vernon MD Care Coordination (SDOH outreach) 03/24/2024 Patient Outreach [facility] MEDICINE [address] [place] [phone] Praneeth Vernon MD Care Coordination (CM/CHW outreach) 03/24/2024 Patient Outreach [facility] MEDICINE [address] [place] [phone] Praneeth Vernon MD 03/10/2024 Orders Only [address] [address] Praneeth Vernon MD 03/09/2024 10:45 AM EST Office Visit [facility] [address] [place] [phone] Praneeth Vernon MD Abdominal hernia without obstruction and without gangrene, recurrence not specified, unspecified hernia type (Primary Dx); Chronic hepatitis C without hepatic coma (CMS/HCC); Uncomplicated opioid dependence (CMS/HCC); Erectile dysfunction, unspecified erectile dysfunction type; Depression with anxiety; Chronic bilateral low back pain without sciatica; Chronic pain of right ankle; History of colonoscopy; Encounter for immunization 03/07/2024 Telephone [facility] MEDICINE [address] [place] [phone] Licha Clark MA Chart Prep 03/02/2024 Patient Outreach [facility]ICINE [address] [place] [phone] Praneeth Vernon MD Care Coordination (SDOH) 02/28/2024 Patient Outreach [facility] [address] [place] [address] NamePraneeth MD Pre-visit Planning (SDOH positive, Tobacco screening positive. ) from Last 3 Months Immunizations Name Administration Dates Next Due HepB-CpG 04/25/2020 Pfizer Covid-19 Vaccine 12+ Bivalent 05/28/2022 Pneumococcal Conjugate PCV 20 03/09/2024 Tdap 04/25/2020 Social History Tobacco Use Types Packs/Day Years Used Date Smoking Tobacco: Every Day Cigarettes Tobacco Cessation:Ready to Q uit: Not Asked; Counseling Given: Not Answered Alcohol Use Standard Drinks/Week Comments Yes 0 [...] with others, in a hotel, in a mcc, living outside on the street, on a [...] Orientation Straight 05/28/2022 9: 58 AM EST Last Filed Vital Signs Vital Sign Reading [...] Mass Index 31.01 05/12/2024 10:18 AM EST Plan of Treatment Upcoming Encounters Date Type Department Care Team (Late st Contact Info) Description 06/14/2024 3:30 PM EDT Office Visit [facility] MED[facility] [address] [place] [phone] Name, MD Praneeth [address] [place] [address] Health Maintenance Due Date Last Done Comments CT Colonography 1967 Colonoscopy 1967 Colorectal Cancer Screening 1965 FIT DNA/Cologuard 1967 FIT 1967 FOBT 1967 Sigmoidoscopy 1967 Alcohol/Substance Use Screening 1979 Hepatitis A Vaccines (1 of 2 - Risk 2-dose series) 06/08/1986 Zoster Vaccines (1 of 2) 06/08/2017 Hepatitis B Vaccines (2 of 2 - CpG 2-dose series) 05/23/2020 04/25/2020 COVID-19 Vaccine (2023-2 5 season) 2023 05/28/2022, 06/19/2020, 05/29/2020 Influenza Vaccine (#1) 2023 Depression Monitoring (PHQ-9) 09/07/2024, 03/09/2024 Depression Screening 03/09/2025 03/09/2024, 03/09/2024 SDOH Screening 03/09/2025 03/09/2024 Tobacco Screening 05/12/2025 05/12/2024 Lipid Panel 03/10/2029 03/10/2024 DTaP/Tdap/Td Vaccines (3 - T d or Tdap) 07/24/2033 07/25/2023, 04/25/2020 RSV Patients and Patients Aged 60 years or older (1 - 1-dose 75+ series) 06/08/2042 Pneumococcal Vaccine: 50+ Years Completed 03/09/2024 HIV Screening Completed 03/10/2024, 10/15/2020, 03/07/2020 HIB Vaccines Aged Out No longer eligi ble based on patient's age to complete this topic HPV Vaccines Aged Out No longer eligi ble based on patient's age to complete this topic IPV Vaccines Aged Out No longer eligi ble based on patient's age to complete this topic Meningococcal Vaccine Aged Out No jv beth eligible based on patient's age to complete this topic RSV under 20 months Aged Out No longe r eligible based on patient's age to complete this topic Rotavirus Vaccines Aged Out No longer eligible based on patient's age to complete this topic Procedures Procedure Name Priority Date/Time Associated Diagnosis Comments CT ABDOMEN PELVIS WO CONTRAST Routine 04/21/2024 9:47 AM EST RPR (MONITOR) W/REFL TITER Routine 03/10/2024 2:08 PM EST Uncomplicated opioid dependence (CMS/HCC) Abdominal hernia without obstruction and without gangrene, recurrence not specified, unspecified hernia type Depression with anxiety Chronic bilateral low back pain without sciatica Chronic hepatitis C without hepatic coma (CMS/HCC) Erectile dysfunction, unspecified erectile dysfunction type Chronic pain of right ankle History of colonoscopy HEPATITIS A ANTIBODY, TOTAL Routine 03/10/2024 2:08 PM EST Uncomplicated opioid dependence (CMS/HCC) Abdominal hernia without obstruction and without gangrene, recurrence not specified, unspecified hernia type Depression with anxiety Chronic bilateral low back pain without sciatica Chronic hepatitis C without hepatic coma (CMS/HCC) Erectile dysfunction, unspecified erectile dysfunction type Chronic pain of right ankle History of colonoscopy HEPATITIS B SURFACE ANTIBODY, QUALITATIVE Routine 03/10/2024 2:08 PM EST Uncomplicated opioid dependence (CMS/HCC) Abdominal hernia without obstruction and without gangrene, recurrence not specified, unspecified hernia type Depression with anxiety Chronic bilateral low back pain without sciatica Chronic hepatitis C without hepatic coma (CMS/HCC) Erectile dysfunction, unspecified erectile dysfunction type Chronic pain of right ankle History of colonoscopy HEPATITIS B SURFACE ANTIGEN, EIA Routine 03/10/2024 2:08 PM EST Uncomplicated opioid dependence (CMS/HCC) Abdominal hernia without obstruction and without gangrene, recurrence not specified, unspecified hernia type Depression with anxiety Chronic bilateral low back pain without sciatica Chronic hepatitis C without hepatic coma (CMS/HCC) Erectile dysfunction, unspecified erectile dysfunction type Chronic pain of right ankle History of colonoscopy HEPATITIS C VIRAL RNA, QUANTITATIVE, REAL-TIME PCR Routine 03/10/2024 2:08 PM EST Uncomplicated opioid dependence (CMS/HCC) Abdominal hernia without obstruction and without gangrene, recurrence not specified, unspecified hernia type Depression with anxiety Chronic bilateral low back pain without sciatica Chronic hepatitis C without hepatic coma (CMS/HCC) Erectile dysfunction, unspecified erectile dysfunction type Chronic pain of right ankle History of colonoscopy HIV 1/2 ANTIGEN/ANTIBODY, FOURTH GENERATION W/RFL Routine 03/10/2024 2:08 PM EST Uncomplicated opioid dependence (CMS/HCC) Abdominal hernia without obstruction and without gangrene, recurrence not specified, unspecified hernia type Depression with anxiety Chronic bilateral low back pain without sciatica Chronic hepatitis C without hepatic coma (CMS/HCC) Erectile dysfunction, unspecified erectile dysfunction type Chronic pain of right ankle History of colonoscopy CHLAMYDIA/N. GONORRHOEAE RNA, TMA, UROGENITAL Routine 03/10/2024 2:08 PM EST Uncomplicated opioid dependence (CMS/HCC) Abdominal hernia without obstruction and without gangrene, recurrence not specified, unspecified hernia type Depression with anxiety Chronic bilateral low back pain without sciatica Chronic hepatitis C without hepatic coma (CMS/HCC) Erectile dysfunction, unspecified erectile dysfunction type Chronic pain of right ankle History of colonoscopy SLIDE REVIEW Routine 03/10/2024 2:03 PM EST TESTOSTERONE, TOTAL, MALES (ADULT), IA Routine 03/10/2024 2:03 PM EST Uncomplicated opioid dependence (CMS/HCC) Abdominal hernia without obstruction and without gangrene, recurrence not specified, unspecified hernia type Depression with anxiety Chronic bilateral low back pain without sciatica Chronic hepatitis C without hepatic coma (CMS/HCC) Erectile dysfunction, unspecified erectile dysfunction type Chronic pain of right ankle History of colonoscopy LIPID PANEL, STANDARD Routine 03/10/2024 2:03 PM EST Uncomplicated opioid dependence (CMS/HCC) Abdominal hernia without obstruction and without gangrene, recurrence not specified, unspecified hernia type Depression with anxiety Chronic bilateral low back pain without sciatica Chronic hepatitis C without hepatic coma (CMS/HCC) Erectile dysfunction, unspecified erectile dysfunction type Chronic pain of right ankle History of colonoscopy PSA, TOTAL Routine 03/10/2024 2:03 PM EST Uncomplicated opioid dependence (CMS/HCC) Abdominal hernia without obstruction and without gangrene, recurrence not specified, unspecified hernia type Depression with anxiety Chronic bilateral low back pain without sciatica Chronic hepatitis C without hepatic coma (CMS/HCC) Erectile dysfunction, unspecified erectile dysfunction type Chronic pain of right ankle History of colonoscopy COMPREHENSIVE METABOLIC PANEL Routine 03/10/2024 2:03 PM EST Uncomplicated opioid dependence (CMS/HCC) Abdominal hernia without obstruction and without gangrene, recurrence not specified, unspecified hernia type Depression with anxiety Chronic bilateral low back pain without sciatica Chronic hepatitis C without hepatic coma (CMS/HCC) Erectile dysfunction, unspecified erectile dysfunction type Chronic pain of right ankle History of colonoscopy CBC WITH AUTO DIFFERENTIAL Routine 03/10/2024 2:03 PM EST Uncomplicated opioid dependence (CMS/HCC) Abdominal hernia without obstruction and without gangrene, recurrence not specified, unspecified hernia type Depression with anxiety Chronic bilateral low back pain without sciatica Chronic hepatitis C without hepatic coma (CMS/HCC) Erectile dysfunction, unspecified erectile dysfunction type Chronic pain of right ankle History of colonoscopy XR ANKLE 2 VIEWS RIGHT Routine 1:32 PM EST Chronic pain of right ankle XR LUMBAR SPINE COMPLETE 4+ VIEWS Routine 03/10/2024 1:32 PM EST Chronic bilateral low back pain without sciatica from Last 3 Months Results * CT Abdomen Pelvis w/o Contrast (04/21/2024 9:47 AM EST) Anatomical Region Laterality Modality Body, Pelvis, Abdomen Computed T omography 04/21/2024 9:47 AM EST Narrative 04/21/2024 10:33 AM EST ? [facility] ?[address] ?[place] [address] ? CT Scan Report ? Signed ? Patient: Alexis Monahan ?MR#: [id number] ? : 1965 ?Acct:[id number] ? Age/Sex: 58 / M ?ADM Date: 04/21/24 ? Loc: HO.CT ? Attending Dr: Bryce Maloney MD ? Ordering Physician: Bryce Maloney MD ?? Date of Service: 04/21/24 ?? Procedure(s): CT abdomen pelvis wo IV con ?? Accession Number(s): [id number] ? cc: Bryce Maloney MD; Praneeth Vernon MD ? Report Number: ?? [id number]: Total DLP = ??541.00 mGy-cm ?? EXAMINATION: ?? CT ABDOMEN AND PELVIS WITHOUT CONTRAST ? CLINICAL INFORMATION: ?? Preoperative examination for incisional hernia. ? COMPARISON: ?? None available. ? TECHNIQUE: ?? Multidetector volumetric imaging was performed from the superior aspect ?? of the liver through the pubic symphysis. Sagittal and coronal ?? reformatted images were obtained on the technologist's workstation. ? This CT examination was performed using dose optimization techniques as ?? appropriate, variously including the following: ?? *Automated exposure control ?? *Adjustment of mA and/or kV according to patient size (this includes ?? techniques or standardized protocols for targeted exams where dose is ?? matched to indication/reason for exam; i.e. extremities or head) ?? *Use of iterative reconstruction technique ? FINDINGS: ?? LUNG BASES: The visualized lung bases are unremarkable. ? LIVER, GALLBLADDER, AND BILIARY TREE: There is a cirrhotic ?? configuration to the liver, with contour lobulation and mildly shrunken ?? appearance. There is a subserosal oval mass arising from segment 6 ?? inferiorly, measuring 2.2 x 2.3 cm in axial plane (series 3, image 18). ?? No definite additional hepatic focal mass. No intrahepatic biliary ?? ductal dilatation. The gallbladder is unremarkable with no evidence of ?? radiopaque gallstones, gallbladder wall thickening, or obvious ?? pericholecystic inflammatory changes. ? PANCREAS: ?? -Significant atrophy of the head and uncinate process. Otherwise mild ?? atrophy of the body and tail. ? SPLEEN: ?? -There is splenomegaly, with the spleen measuring 17.2 x 15.0 cm. No ?? focal lesion, within confines of nonenhanced technique. ? ADRENAL GLANDS: Unremarkable. ? KIDNEYS AND URETERS: ?? -The kidneys are normal in size, shape, and attenuation. Mild ?? malrotation of the left kidney. No hydronephrosis, hydroureter, or ?? calculi seen. No perinephric stranding. ??There is a simple exophytic ?? cyst arising from the superior pole of the left kidney measuring 2.2 ?? cm. ? BLADDER: Unremarkable. ? GASTROINTESTINAL TRACT: The small and large bowel are unremarkable. The ?? appendix is unremarkable. ? ABDOMINAL WALL: ?? -There is a supraumbilical midline ventral hernia, containing a ?? nonobstructed, nonincarcerated loop of transverse colon. The hernia sac ?? measures 7.4 cm in transverse by 7.2 cm in craniocaudad dimension. ?? There is a wide diastases. ?? -There is a tiny fat-containing periumbilical hernia just inferior to ?? the larger hernia. ?? -There is a small fat-containing right indirect inguinal hernia. ? LYMPH NODES: Normal. ? VASCULAR: ?? -No aortic aneurysm. ?? -There are splenic and splenorenal varices. There are gastric varices. ?? There are small esophageal varices. ? PELVIC VISCERA: The prostate and seminal vesicles are unremarkable. ? OSSEOUS STRUCTURES: ?? -No suspicious lytic or blastic bone lesions. ?? -Mild right convex lumbar scoliosis with moderate degenerative ?? spondylosis. Disc vacuum phenomenon noted L1-S1. There are prominent ?? dorsal disc osteophytic complexes at L1-2, L2-3, and smaller at L3-4. ?? These result in severe central canal stenosis at L1-2 and L2-3. ?? -Mild arthritic changes in both hips and SI joints. ? CT/CT abdomen pelvis wo IV con ?? IMPRESSION: ?? 1. There is a supraumbilical midline ventral hernia containing fat and ?? a loop of nonobstructed transverse colon, with hernia sac measuring 7.4 ?? x 7.2 cm. Just inferior there is a tiny periumbilical hernia containing ?? fat. There is a small moderate size right inguinal indirect ?? fat-containing hernia. ?? 2. Hepatic cirrhosis with varices. There is an exophytic oval mass ?? arising from segment 6 inferiorly, which cannot be characterized ?? further on this exam. Consider correlating with MRI. ?? 3. Splenomegaly. ?? 4. Pancreatic atrophy. ?? 5. Additional ancillary findings as discussed in the body of the report. ? Electronically signed by: ??Michael Mercer MD ??04/21/2024 10:30 AM EST RP ?? Workstation: [id number] ? Dictated By: ?Michael Mercer MD ? Signed By: ?<Electronically signed by Michael Mercer MD in OV> ?04/21/24 1030 ? DD/ 0947 ? TD/TT: 04/21/24 0955 ? Igniter Assembler: ? Procedure Note Slim Neff - 04/21/[address] [address] [address] Scan Report Signed Patient: Alexis Monahan#: [id number] : 1965Acct:[id number] Age/Sex: 58 / MADM Date: 04/21/24 Loc: HO.CT Attending Dr: Bryce Maloney MD Ordering Physician: Bryce Maloney MD Date of Service: 04/21/24 Procedure(s): CT abdomen pelvis wo IV con Accession Number(s): [id number] cc: Bryce Maloney MD; Name,Praneeth Report Number: [id number]: Total DLP = 541.00 mGy-cm EXAMINATION: CT ABDOMEN AND PELVIS WITHOUT CONTRAST CLINICAL INFORMATION: Preoperative examination for incisional hernia. COMPARISON: None available. TECHNIQUE: Multidetector volumetric imaging was performed from the superior aspect of the liver through the pubic symphysis. Sagittal and coronal reformatted images were obtained on the technologist's workstation. This CT examination was performed using dose optimization techniques as appropriate, variously including the following: *Automated exposure control *Adjustment of mA and/or kV according to patient size (this includes techniques or standardized protocols for targeted exams where dose is matched to indication/reason for exam; i.e. extremities or head) *Use of iterative reconstruction technique FINDINGS: LUNG BASES: The visualized lung bases are unremarkable. LIVER, GALLBLADDER, AND BILIARY TREE: There is a cirrhotic configuration to the liver, with contour lobulation and mildly shrunken appearance. There is a subserosal oval mass arising from segment 6 inferiorly, measuring 2.2 x 2.3 cm in axial plane (series 3, image 18). No definite additional hepatic focal mass. No intrahepatic biliary ductal dilatation. The gallbladder is unremarkable with no evidence of radiopaque gallstones, gallbladder wall thickening, or obvious pericholecystic inflammatory changes. PANCREAS: -Significant atrophy of the head and uncinate process. Otherwise mild atrophy of the body and tail. SPLEEN: -There is splenomegaly, with the spleen measuring 17.2 x 15.0 cm. No focal lesion, within confines of nonenhanced technique. ADRENAL GLANDS: Unremarkable. KIDNEYS AND URETERS: -The kidneys are normal in size, shape, and attenuation. Mild malrotation of the left kidney. No hydronephrosis, hydroureter, or calculi seen. No perinephric stranding. There is a simple exophytic cyst arising from the superior pole of the left kidney measuring 2.2 cm. BLADDER: Unremarkable. GASTROINTESTINAL TRACT: The small and large bowel are unremarkable. The appendix is unremarkable. ABDOMINAL WALL: -There is a supraumbilical midline ventral hernia, containing a nonobstructed, nonincarcerated loop of transverse colon. The hernia sac measures 7.4 cm in transverse by 7.2 cm in craniocaudad dimension. There is a wide diastases. -There is a tiny fat-containing periumbilical hernia just inferior to the larger hernia. -There is a small fat-containing right indirect inguinal hernia. LYMPH NODES: Normal. VASCULAR: -No aortic aneurysm. -There are splenic and splenorenal varices. There are gastric varices. There are small esophageal varices. PELVIC VISCERA: The prostate and seminal vesicles are unremarkable. OSSEOUS STRUCTURES: -No suspicious lytic or blastic bone lesions. -Mild right convex lumbar scoliosis with moderate degenerative spondylosis. Disc vacuum phenomenon noted L1-S1. There are prominent dorsal disc osteophytic complexes at L1-2, L2-3, and smaller at L3-4. These result in severe central canal stenosis at L1-2 and L2-3. -Mild arthritic changes in both hips and SI joints. CT/CT abdomen pelvis wo IV con IMPRESSION: 1. There is a supraumbilical midline ventral hernia containing fat and a loop of nonobstructed transverse colon, with hernia sac measuring 7.4 x 7.2 cm. Just inferior there is a tiny periumbilical hernia containing fat. There is a small moderate size right inguinal indirect fat-containing hernia. 2. Hepatic cirrhosis with varices. There is an exophytic oval mass arising from segment 6 inferiorly, which cannot be characterized further on this exam. Consider correlating with MRI. 3. Splenomegaly. 4. Pancreatic atrophy. 5. Additional ancillary findings as discussed in the body of the report. Electronically signed by: Michael Mercer MD 04/21/2024 10:30 AM [facility] Dictated By: Michael Mercer MD Signed By: <Electronically signed by Michael Mercer MD in OV> 04/21/24 1030 DD/ 0947 TD/TT: 04/21/24 0955 Igniter Assembler: [facility] External Provider IMG CT PROCEDURES Final Result * Hepatitis C Viral RNA, Quantitative, Real-Time PCR (03/10/2024 2:08 PM EST) [facility] Hepatitis C Viral Load <15 NOT DETECTED NOT DETECTED IU/mL [facility] HCV Log PCR <1.18 NOT DETECTED NOT DETECTED Log IU/mL [facility] Comment:For additional infor griselda, please refer [email or web address](This link is being provided for informational/educational purposes only.)THIS TEST WAS PERFORMED AT:[employer] [place] [id number] SIMMONS MD Blood Venous blood specimen / Unknown 03/10/2024 2:08 PM EST 03/10/2024 3:56 PM EST us Praneeth Vernon MD LAB BLOOD ORDERABLES Final Resul t Performing Organization Address [facility]/ZIP Co de Phone Number [facility] [address] [place] [phone] * Hepatitis A Antibody, Total (03/10/2024 2:08 PM EST) [facility] Hepatitis A Antibody IgG REACTIVE Nonreactive [facility] Comment:The presence of IgG anti-HAV implies past HAV infection(recent or distant) or vaccination against HAV. Blood Venous blood specimen / Unknown 03/10/2024 2:08 PM EST 03/10/2024 3:56 PM EST us Praneeth Vernon MD LAB BLOOD ORDERABLES Final Resul t Performing Organization Address [facility] [facility] Co de Phone Number [facility] [address] [place] [phone] * Chlamydia/N. Gonorrhoeae RNA, TMA, Urogenitial (03/10/2024 2:08 PM EST) [facility] CT PCR NOT DETECTED Not Detect. [facility] Comment:A not detected test result does not exclude the possibilityof infection because test results can be affected byimproper specimen collection, concurrent antibiotic therapy,or the number of organisms in the specimen which may bebelow the sensitivity of the test. As with many diagnostictests, results from the Xpert CT/NG assay should beinterpreted in conjunction with other laboratory andclinical data available to the clinician.Xpert CT/NG performance has not been evaluated in patientsless than 14 years of age. The assay should not be used forthe evaluationof suspected sexual abuse or for other medico-legalindications. Additional testing is recommended in anycircumstance when false positive or false negative resultscould lead to adverse medical, social or psychologicalconsequences. NG PCR NOT DETECTED Not Detect. [facility] Comment:A not detected test result does not exclude the possibilityof infection because test results can be affected byimproper specimen collection, concurrent antibiotic therapy,or the number of organisms in the specimen which may bebelow the sensitivity of the test. As with many diagnostictests, results from the Xpert CT/NG assay should beinterpreted in conjunction with other laboratory andclinical data available to the clinician.Xpert CT/NG performance has not been evaluated in patientsless than 14 years of age. The assay should not be used forthe evaluationof suspected sexual abuse or for other medico-legalindications. Additional testing is recommended in anycircumstance when false positive or false negative resultscould lead to adverse medical, social or psychologicalconsequences. Urine, Random 03/10/2024 2:0 8 PM EST 03/10/2024 3:54 PM EST Narrative [facility] - 03/10/2024 10:34 PM EST Urine Praneeth Vernon MD LAB MICROBIOLOGY - GENERAL ORDER ALLEN Final Result [facility] [address] [place] [phone] * Hepatitis B surface antigen, EIA (03/10/2024 2:08 PM EST) Hepatitis B Surface Ag Negative Negative [facility] Blood Venous blood specimen / Unknown 03/10/2024 2:08 PM EST 03/10/2024 3:56 PM EST us Praneeth Vernon MD LAB BLOOD ORDERABLES Final Resul t Performing Organization Address [facility]/ZIP Co de Phone Number [facility] [address] [place] [phone] * RPR (Monitor) with Reflex to??Titer (03/10/2024 2:08 PM EST) RPR (Monitor) w/Refl Titer NON-REACTI VE NON-REACT JONATHAN [facility] Comment:THIS TEST WAS PERFOR MED AT:[employer] [place] [phone] SIMMONS MD Rapid Plasma Reagin Ab Titer TNP [facility] Blood Venous blood specimen / Unknown 03/10/2024 2:08 PM EST 03/10/2024 3:56 PM EST Praneeth Vernon MD LAB BLOOD ORDERABLES Final Resul t Performing Organization Address [facility] Co de Phone Number [facility] [address] [place] [phone] * HIV-1/2 Antigen and Antibodies, Fourth Generation, with Reflexes (03/10/2024 2:08 PM EST) HIV AB/AG Nonreactive Nonreactive [facility] Comment:HIV-1 p24 Ag and/or HIV-1/HIV-2 Ab not detected.A test result that is nonreactive does not exclude thepossibility of exposure to or infection with HIV-1 and/orHIV-2. Nonreactive results in this assay for individualswith prior exposure to HIV-1 and/or HIV-2 may be due toantigen and antibody levels that are below the limit ofdetection of this assay.The Conjure HIV Ag/Ab Combo assay result andsupplemental assay results should be interpreted inconjunction with the patient's clinical presentation,history and other laboratory results. If the results areinconsistent with clinical evidence, additional testing issuggested to confirm the result. Blood Venous blood specimen / Unknown 03/10/2024 2:08 PM EST 03/10/2024 3:56 PM EST us Praneeth Vernon MD LAB BLOOD ORDERABLES Final Resul t Performing Organization Address [facility] Co de Phone Number [facility] [address] [place] [phone] * Hepatitis B Surface Antibody, Qualitative (03/10/2024 2:08 PM EST) ~Hepatitis B Surface Antibody NONREACTIVE Nonreactive [facility] Comment:Nonreactive: < 8.00 mIU/mL Blood Venous blood specimen / Unknown 03/10/2024 2:08 PM EST 03/10/2024 3:56 PM EST us Praneeth Vernon MD LAB BLOOD ORDERABLES Final Resul t Performing Organization Address [facility] Co de Phone Number [facility] [address] [place] [phone] * Slide Review (03/10/2024 2:03 PM EST) Slide Review VERIFIED [facility] 03/10/2024 2:03 PM EST 03/10/2024 3:56 PM EST Result [facility] us Praneeth Vernon MD LAB BLOOD ORDERABLES Final Resul t Performing Organization Address [facility] de Phone Number [facility] [address] [place] [phone] * (ABNORMAL) CBC auto differential (03/10/2024 2:03 PM EST) White Blood Count 5.1 4.8 - 10.8 X10*3/uL [facility] Red Blood Count 4.29(L) 4.60 - 5.80 X10*6/uL [facility] Hemoglobin 13.8(L) 14.0 - 18.0 g/dl [facility] Hematocrit 37.4(L) 42.0 - 52.0 % [facility] Mean Corpuscular Volume 87.2 80.0 - 98.0 fL [facility] Mean Corpuscular Hemoglobin 32.2 27.0 - 33.0 pg [facility] Mean Corpuscular HGB Conc 36.9(H) 31.0 - 36.0 g/dl [facility] Red Cell Distribution Width 12.6 11.0 - 16.0 % [facility] Platelet Count 71(L) 160 - 400 X10*3/uL [facility] Mean Platelet Volume 12.2 9.4 - 12.4 fL [facility] Neutrophils Percent Auto 63.5 45 - 73 % [facility] Imm Gran Pct Auto 0.2 0.0 - 0.4 % [facility] Lymphocytes Percent Auto 20.9 20 - 40 % [facility] Monocytes Percent Auto 6.8 2 - 11 % [facility] Eosinophils Percent Auto 8.2(H) 0 - 4 % [facility] Basophils Percent Auto 0.4 0 - 2 % [facility] NRBC Pct Auto 0.0 0.0 - 0.2 /100WBC [facility] Neutrophils Absolute Auto 3.3 2.0 - 8.3 x10*3/uL [facility] Imm Gran Abs Auto 0.01 0.00 - 0.03 X10*3/uL [facility] Lymphocytes Absolute Auto 1.1(L) 1.2 - 4.9 X10*3/uL [facility] Monocytes Absolute Auto 0.4 0.1 - 1.2 X10*3/uL [facility] Eosinophils Absolute Auto 0.4 0.0 - 0.4 X10*3/uL [facility] Basophils Absolute Auto 0.0 0.0 - 0.2 X10*3/uL [facility] NRBC Abs Auto 0.000 0.0 - 0.012 X10*3/uL [facility] Blood Venous blood specimen / Unknown 03/10/2024 2:03 PM EST 03/10/2024 3:56 PM EST us Praneeth Vernon MD LAB BLOOD ORDERABLES Edited Resu lt - Final Performing Organization Address [facility] Co de Phone Number [facility] [address] [place] [phone] * Testosterone, Total, males (Adult), IA (03/10/2024 2:03 PM EST) Testosterone, Total 315 250 - 1100 ng/dL [facility] Comment:For additional infor mation, please refer tohttp://education.[employer]/faq/UhzbaKvgghmypizgpJJQXUAGNH390(This link is being provided for informational/educational purposes only.)This test was developed and its analytical performancecharacteristics have been determined by [employer] [place], [place]. It hasnot been cleared or approved by the U.S. Food and DrugAdministration. This assay has been validated pursuantto the CLIA regulations and is used for clinicalpurposes.THIS TEST WAS PERFORMED AT:[employer]/[facility] [place] [id number] STOCK MD,PHD Blood Venous blood specimen / Unknown 03/10/2024 2:03 PM EST 03/10/2024 3:56 PM EST us Praneeth Vernon MD LAB BLOOD ORDERABLES Final Resul t Performing Organization Address [facility] Co de Phone Number [facility] [address] [place] [phone] * PSA,Total (03/10/2024 2:03 PM EST) Prostate Specific Antigen 0.16 <0.05 - 4.0 ng/mL [facility] Comment:PSA methodology: Abb antoine Aliashleyty i ChemiluminescentMicroparticle Immunoassay (CMIA) Blood Venous blood specimen / Unknown 03/10/2024 2:03 PM EST 03/10/2024 3:56 PM EST us Praneeth Vernon MD LAB BLOOD ORDERABLES Final Resul t Performing Organization Address City/[facility]/ZIP Co de Phone Number [facility] [address] [place] [phone] * Lipid Panel, Standard (03/10/2024 2:03 PM EST) Triglycerides 47 <150 mg/dL [facility] Comment:Desirable Triglyceri de: less than 150 mg/dLBorderline High Triglyceride 150-199 mg/dLHigh Triglyceride: 200-499 mg/dLVery High Triglyceride: greater than or equal to 5OO mg/dL Cholesterol 125 <200 mg/dL [facility] Comment:Desirable Cholestero l: less than 200 mg/dLBorderline High Cholesterol: 200-239 mg/dLHigh Cholesterol: greater than 239 mg/dL LDL Cholesterol Calculated 58 <100 mg/dL [facility] Comment:Desirable LDL: less than 100 mg/dLNear Optimal/Above Optimal LDL: 110- 129 mg/dLBorderline High LDL: 130-159 mg/dLHigh LDL: 160-189 mg/dLVery High LDL: greater than or equal to 190 mg/dL HDL Cholesterol 58 >40 mg/dL [facility] Comment:Desirable HDL: great er than 40 mg/dL Note: This HDL assay may give artificially low results in patients with liver disease. Blood Venous blood specimen / Unknown 03/10/2024 2:03 PM EST 03/10/2024 3:56 PM EST us Praneeth Vernon MD LAB BLOOD ORDERABLES Final Resul t Performing Organization Address City/[facility]/ZIP Co de Phone Number [facility] [address] [place] [phone] * (ABNORMAL) Comprehensive Metabolic Panel (03/10/2024 2:03 PM EST) Sodium 139 135 - 145 mmol/L [facility] Potassium 4.1 3.3 - 5.1 mmol/L [facility] Chloride 105 96 - 108 mmol/L [facility] Carbon Dioxide 31(H) 22 - 29 mmol/L [facility] Anion Gap 7(L) 12 - 20 [facility] Urea Nitrogen (BUN) 11 9 - 16 mg/dL [facility] Creatinine, Serum 0.66 0.5 - 1.4 mg/dL [facility] Estimated Glomerular Filt Rate >60 [facility] Comment:Chronic Kidney Disea se: Estimated GFR < 60 mL/min/1.79p3Axiljj Kidney Disease: Estimated GFR < 15 mL/min/1.73m2 Glucose 78 60 - 115 mg/dL [facility] Calcium 8.9 8.4 - 10.2 mg/dL [facility] Bilirubin, Total 1.1(H) 0.0 - 1.0 mg/dL [facility] Aspartate Amino Transferase 38(H) 5 - 37 U/L [facility] Alanine Aminotransferase 27 0 - 40 U/L [facility] Total Protein 7.3 6.5 - 8.0 g/dL [facility] Albumin Level 4.2 3.5 - 5.0 g/dL [facility] Alkaline Phosphatase 105 39 - 117 U/L [facility] Blood Venous blood specimen / Unknown 03/10/2024 2:03 PM EST 03/10/2024 3:56 PM EST us Praneeth Name LAB BLOOD ORDERABLES Final Resul t [facility] [address] [place] [phone] * XR Ankle 2 Views Right (03/10/2024 1:32 PM EST) Anatomical Region Laterality Modality Lower Extremities, Ankle Right Radiogr aphic Imaging 03/10/2024 1:32 PM EST Narrative 03/26/2024 12:06 PM EST ?[facility] ?[address] ?[place] [address] ?XRay Report ? Signed ? Patient: Monahan,Alexis ?MR#: [id number] ? : 1965 ?Acct:[id number] ? Age/Sex: 58 / M ?ADM Date: 03/10/24 ? Loc: HO.HHCX ? Attending Dr: Praneeth Vernon MD ? Ordering Physician: Praneeth Vernon MD ?? Date of Service: 03/10/24 ?? Procedure(s): XR ankle RT 2V ?? Accession Number(s): [id number] ? cc: Praneeth Vernon MD ? EXAMINATION: ?? XR ??RIGHT ANKLE ? CLINICAL INFORMATION: ?? Chronic right ankle pain. ? COMPARISON: ?? None available. ? TECHNIQUE: ?? AP, lateral, and mortise views of the right ankle. ? FINDINGS: ?? No fracture. Alignment is anatomic. No erosions. Joint spaces are ?? maintained. Soft tissues are normal. Small posterior and inferior ?? calcaneal spurs. ? XR/XR ankle RT 2V ?? IMPRESSION: ? 1. ??Small calcaneal spurs. ? 2. ??No fracture or dislocation. ? Electronically signed by: ??Niki Morales MD ??03/26/2024 12:03 PM EST ? Dictated By: ?Niki Morales MD ? Signed By: ?<Electronically signed by Niki Morales MD in OV> ?03/26/24 1203 ? DD/ 1332 ? TD/TT: 03/10/24 1405 ? Igniter Assembler: HS ? Procedure Note Slim Neff - 03/26/[address] [address] XRay Report Signed Patient: Claudy Monahan#: [id number] : 1965Acct:[id number] Age/Sex: 58 / MADM Date: 03/10/24 Loc: HO.HHCX Attending Dr: Praneeth Vernon MD Ordering Physician: Praneeth Vernon MD Date of Service: 03/10/24 Procedure(s): XR ankle RT 2V Accession Number(s): [id number] cc: Name,Praneeth MD EXAMINATION: XR RIGHT ANKLE CLINICAL INFORMATION: Chronic right ankle pain. COMPARISON: None available. TECHNIQUE: AP, lateral, and mortise views of the right ankle. FINDINGS: No fracture. Alignment is anatomic. No erosions. Joint spaces are maintained. Soft tissues are normal. Small posterior and inferior calcaneal spurs. XR/XR ankle RT 2V IMPRESSION: 1. Small calcaneal spurs. 2. No fracture or dislocation. Electronically signed by: Niki Morales MD 03/26/2024 12:03 PM EST RP Dictated By: Niki Morales MD Signed By: <Electronically signed by Niki Morales MD in OV> 03/26/24 1203 DD/ 1332 TD/TT: 03/10/24 1405 Igniter Assembler: TYLER us Praneeth Name IMG XR PROCEDURES Edited Result - Final * XR Lumbar Spine Complete 4+ Views (03/10/2024 1:32 PM EST) Anatomical Region Laterality Modality Spine, L-spine Radiographic Amelia ging 03/10/2024 1:32 PM EST Narrative 03/21/2024 1:12 PM EST ?[facility] ?[address] ?[place] [address] ?XRay Report ? Signed ? Patient: Hero,Alexis ?MR#: [id number] ? : 1965 ?Acct:[id number] ? Age/Sex: 58 / M ?ADM Date: 03/10/24 ? Loc: HO.HHCX ? Attending : Praneeth Vernon MD ? Ordering Physician: Name,Praneeth BERGERON ?? Date of Service: 03/10/24 ?? Procedure(s): XR lumbar spine 4V min ?? Accession Number(s): [id number] ? cc: Name,Praneeth MD ? EXAMINATION: ?? XR LUMBAR SPINE ? CLINICAL INFORMATION: ?? Chronic low back pain. ? COMPARISON: ?? None ? TECHNIQUE: ?? 5 views of the lumbar spine were obtained. ? FINDINGS: ?? Normal vertebral body height and alignment. No evidence of ?? spondylolysis or spinal stenosis. Degenerative changes with disc space ?? narrowing and osteophyte formation is seen diffusely within the lumbar ?? spine. Posterior facet joint arthropathy is seen from L3 through S1. ? XR/XR lumbar spine 4V min ?? IMPRESSION: ?? Multilevel degenerative disc disease and posterior facet joint ?? arthropathy. ? Electronically signed by: ??Sherwin Robles MD ??03/21/2024 01:09 PM EST RP ? Dictated By: ?Sherwin Robles MD ? Signed By: ?<Electronically signed by Sherwin Robles MD in OV> ? 03/21/24 1309 ? DD/ 1332 ? TD/TT: 03/10/24 1405 ? Igniter Assembler: ? Procedure Note Donotnaldointerpreter, Image - 03/21/[address] [address] XRay Report Signed Patient: Claudy Monahan#: [id number] : 1965Acct:[id number] Age/Sex: 58 / MADM Date: 03/10/24 Loc: .HHCX Attending Dr: Praneeth Vernon MD Ordering Physician: Praneeth Vernon MD Date of Service: 03/10/24 Procedure(s): XR lumbar spine 4V min Accession Number(s): [id number] cc: Praneeth Vernon MD EXAMINATION: XR LUMBAR SPINE CLINICAL INFORMATION: Chronic low back pain. COMPARISON: None TECHNIQUE: 5 views of the lumbar spine were obtained. FINDINGS: Normal vertebral body height and alignment. No evidence of spondylolysis or spinal stenosis. Degenerative changes with disc space narrowing and osteophyte formation is seen diffusely within the lumbar spine. Posterior facet joint arthropathy is seen from L3 through S1. XR/XR lumbar spine 4V min IMPRESSION: Multilevel degenerative disc disease and posterior facet joint arthropathy. Electronically signed by: Sherwin Robles MD 03/21/2024 01:09 PM [facility] Dictated By: Sherwin Robles MD Signed By: <Electronically signed by Sherwin Robles MD in OV> 03/21/24 1309 DD/ 1332 TD/TT: 03/10/24 1405 Igniter Assembler: us Praneeth Name MD [facility] XR PROCEDURES Edited Result - Final from Last 3 Months Insurance [facility] C3 Care Teams Food Service Director Relationship Specialty Start Date End Date Name, MD Praneeth [address] [place] [phone] PCP - General Internal Medicine 03/09/24 Anjelica Silva Loading ManagerManager Home 04/26/24
== END 2024-05-22 13:31 | disposition home or self-care (01) ==
PROVIDERS: PCP Internal Medicine Geriatric Medicine; Visit Provider Surgery
DX: K43.2 Incisional hernia without obstruction or gangrene (principal)
CPT/HCPCS: 99212

== ENCOUNTER → 2024-05-22 13:05 | Outpatient (BNVA) | payer MEDICAID, SELFPAY | PROVIDERS: PCP Internal Medicine Geriatric Medicine; Visit Provider Surgery | DX: Z09 Encounter for follow-up examination after completed treatment for conditions other than malignant neoplasm (principal); Z98.890 Other specified postprocedural states | CPT/HCPCS: 99212 ==

== ENCOUNTER 2024-06-15 16:30 | Outpatient (REF) | payer MEDICAID, SELFPAY | END 2024-06-15 16:31 | disposition home or self-care (01) | LOC: HO.MRI 16:30 | PROVIDERS: PCP Internal Medicine Geriatric Medicine; Visit Provider Internal Medicine Geriatric Medicine | DX: Z13.89 Encounter for screening for other disorder (principal) ==

== ENCOUNTER → 2024-06-29 10:57 | Outpatient (BNV) | payer MEDICAID, SELFPAY | PROVIDERS: PCP Internal Medicine Geriatric Medicine; Visit Provider Radiology Diagnostic Radiology | DX: R16.0 Hepatomegaly, not elsewhere classified (principal) | CPT/HCPCS: 74183 ==

== ENCOUNTER 2024-06-29 11:00 | Outpatient (REF) | payer MEDICAID, SELFPAY ==
--- NOTE | ~2024-06-29 | MR_ITS ---
EXAMINATION: MRI Abdomen without and with contrast HISTORY: liver mass cirrhosis of liver COMPARISON: Correlation is made with a CT of the abdomen and pelvis without contrast dated 04/21/2024. TECHNIQUE: Axial in and out of phase T1-weighted gradient echo, axial diffusion weighted, and axial and coronal HASTE T2 with fat saturation images were obtained through the abdomen. Subsequently, fat suppressed axial and coronal T1-weighted images were obtained after the intravenous administration of 9 mL Gadavist. FINDINGS: There is no significant loss of signal intensity within the liver on opposed phase imaging to suggest steatosis. The liver demonstrates a nodular contour, consistent with cirrhosis. Multiple liver lesions are noted with imaging characteristics as described below: Lesion #: 1, corresponding to the lesion noted on CT. Location: segment Size: 2.0 cm T2 signal intensity: Slightly increased Arterial Phase Hyperenhancement (APHE): yes Additional Major Features Enhancing Capsule: yes Nonperipheral washout: yes Threshold Growth: no LI-RADS Category: LR-5 Definitely HCC Lesion #: 2 Location: segment Size: 0.8 cm T2 signal intensity: Not apparent Arterial Phase Hyperenhancement (APHE): yes Additional Major Features Enhancing Capsule: no Nonperipheral washout: no Threshold Growth: no LI-RADS Category: LR-3 Intermediate Probability of Malignancy Lesion #: 3 Location: segment IV/VIII Size: 6.5 x 3.1 x 2.2 cm T2 signal intensity: Hyperintense Arterial Phase Hyperenhancement (APHE): yes Additional Major Features Enhancing Capsule: yes Nonperipheral washout: yes Threshold Growth: no LI-RADS Category: LR-5 Definitely HCC Lesion #: 4 Location: segment VIII Size: 0.8 cm T2 signal intensity: Hyperintense Arterial Phase Hyperenhancement (APHE): yes Additional Major Features Enhancing Capsule: no Nonperipheral washout: yes Threshold Growth: no LI-RADS Category: LR-4 Probable HCC The hepatic and portal veins are patent. There is no intra or extrahepatic biliary ductal dilatation. The gallbladder is unremarkable. The spleen is enlarged. No focal splenic lesion is identified. The pancreas and adrenals are unremarkable. There are bilateral renal cysts, the largest of which is at the upper pole of the left kidney measuring 2.3 cm in size. No retroperitoneal lymphadenopathy or ascites is identified in the upper abdomen. The visualized bones demonstrate normal marrow signal intensity. MR/MR abdomen wo/w con IMPRESSION: Cirrhosis of the liver and splenomegaly. Multiple liver lesions as described above ranging from definitely HCC to intermediate probability of malignancy. These see detailed discussion above. Electronically signed by: Tejas Keen MD 06/29/2024 02:59 PM EDT
[2024-06-29] MEDS: gadobutroL 10 ML VIAL IVPUSH (11:37)
--- OUTSIDE RECORDS SUMMARY | 2024-06-29 12:21 | XMS_ITS | Clinical Summary ---
Author Organization [employer] Address [address] [facility] [address] [place] [address] Care Team Providers Care Scientific Associate Name Role Phone Name, Praneeth BERGERON Primary Care Provider [phone] Allergies Active Allergy Reactions Criticality Noted Date [...] pain. 120 tablet 5 06/12/19 25 Active Problems Problem Noted Date Diagnosed Date [...] further Radiculopathy of lumbar region 06/20/2014 Encounters Date Type Department Care Team Description 06/27/2024 Patient Outreach [facility] [place] [address] Praneeth Vernon MD Care Coordination ([facility] f/u) 06/14/2024 Patient Outreach [facility] [place] [address] Praneeth Vernon MD Care Coordination ([facility] f/u) 2024 Population Health Risk [facility] Department [address] [phone] Provider, Population Health Generic 05/18/2024 Telephone [facility] [place] [address] Praneeth Vernon MD DTA Form (I called [...] faxed to the DTA.) 05/18/2024 Patient Outreach [facility] [place] [address] Praneeth Vernon MD Care Coordination ([facility] f/u) 05/12/2024 9:30 AM EST Office Visit [facility] [place] [address] Eulalia Kearney NP Hospital discharge follow-up (Primary Dx); Constipation, unspecified constipation type; H/O hernia repair 05/10/2024 Patient Outreach [facility] [place] [address] Praneeth Vernon MD Care Coordination ([facility]) 05/04/2024 Patient Outreach [facility] [place] [address] Praneeth Vernon MD Care Coordination ([facility]) 05/02/[address] [address] Jamison Ellison MA chartprep 05/01/2024 Telephone [facility] [address] [place] [phone] Amanda Sanchez RN 04/27/[address] [address] Amanda Sanchez, RN Error (VOID this visit) 04/27/2024 Telephone [place] [facility] [address] [place] [phone] Praneeth Vernon MD 04/27/2024 Telephone [facility] [address] [place] [phone] Praneeth Vernon MD 04/26/2024 Telephone [facility] [address] [place] [phone] Praneeth Vernon MD Care Coordination ([facility] ) 04/21/2024 Orders Only [facility] External Provider, [facility] 04/06/[address] [address] Trini Peterson MA feb recalls 04/03/2024 Patient Outreach [address] [address] Praneeth Vernon MD Care Coordination ([facility] outreach) from Last 3 Months Immunizations Name Administration [...] with others, in a hotel, in a care home, living outside on the street, on a [...] 05/12/2024 10:18 AM EST Plan of Treatment Health Maintenance Due Date Last Done Comments CT Colonography 1967 Colonoscopy 1967 Colorectal Cancer Screening 1967 FIT DNA/Cologuard 1967 FIT 1967 FOBT 1967 Sigmoidoscopy 1967 Alcohol/Substance Use Screening 1979 Hepatitis A Vaccines (1 of 2 - Risk 2-dose series) 06/08/1986 Zoster Vaccines (1 of 2) 06/08/2017 Hepatitis B Vaccines (2 of 2 - CpG 2-dose series) 05/23/2020 04/25/2020 COVID-19 Vaccine (4 - 2023-2 5 season) 2023 05/28/2022, 06/19/2020, 05/29/2020 Influenza [...] WO CONTRAST Routine 04/21/2024 9:47 AM EST HIV 1/2 ANTIGEN/ANTIBODY, FOURTH GENERATION W/RFL Routine [...] pain of right ankle History of colonoscopy from Last 3 Months or Most Recently Relevant to Health Maintenance Results * CT Abdomen Pelvis w/o Contrast (04/21/2024 9:47 AM EST) Anatomical Region Laterality Modality Body, Pelvis, Abdomen Computed T omography 04/21/2024 9:47 AM EST Narrative 04/21/2024 10:33 AM EST ? [facility] ?[address] [facility]. ?[place] [address] ? CT Scan Report ? Signed ? Patient: Alexis Monahan ?MR#: [id number] ? : 1965 ?Acct:[id number] ? Age/Sex: 58 / M ?ADM Date: 04/21/24 ? Loc: HO.CT ? Attending Dr: Bryce Maloney MD ? Ordering Physician: Bryce Maloney MD ?? Date of Service: 04/21/24 ?? Procedure(s): CT abdomen pelvis wo IV con ?? Accession Number(s): [id number] ? cc: Bryce Maloney MD; Praneeth Vernon MD ? Report Number: ?? [id number]: Total DLP = ??541.00 mGy-cm ?? EXAMINATION: [...] Mercer MD ??04/21/2024 10:30 AM EST RP ? Dictated By: ?Michael Mercer MD ? Signed By: ?<Electronically signed by Michael Mercer MD in OV> ?04/21/24 1030 ? DD/ 0947 ? TD/TT: 04/21/24 0955 ? Spread Cutter: ? Procedure Note Donotuseinterpreter, Image - 04/21/[address] [address] [address] Scan Report Signed Patient: Claudy Monahan#: [id number] : 1965Acct:[id number] Age/Sex: 58 / MADM Date: 04/21/24 Loc: HO.CT Attending Dr: Bryce Maloney MD Ordering Physician: Bryce Maloney MD Date of Service: 04/21/24 Procedure(s): CT abdomen pelvis wo IV con Accession Number(s): [id number] cc: Bryce Maloney MD; Name,Praneeth BERGERON Report Number: [id number]: Total DLP = 541.00 mGy-cm EXAMINATION: CT [...] by: Michael Mercer MD 04/21/2024 10:30 AM [facility] Dictated By: Michael Mercer MD Signed By: <Electronically signed by Michael Mercer MD in OV> 04/21/24 1030 DD/ 0947 TD/TT: 04/21/24 0955 Spread Cutter: [facility] External Provider IMG CT PROCEDURES Final Result * HIV-1/2 Antigen and Antibodies, Fourth Generation, with Reflexes (03/10/2024 2:08 PM EST) HIV AB/AG Nonreactive Nonreactive [facility] Comment:HIV-1 p24 Ag and/or HIV-1/HIV-2 Ab not detected.A test result that is nonreactive does not exclude thepossibility of exposure to or infection with HIV-1 and/orHIV-2. Nonreactive results in this assay for individualswith prior exposure to HIV-1 and/or HIV-2 may be due toantigen and antibody levels that are below the limit ofdetection of this assay.The GOGETMi / ?.??niBiomoti HIV Ag/Ab Combo assay result andsupplemental assay results should be interpreted inconjunction with the patient's clinical presentation,history and other laboratory results. If the results areinconsistent with clinical evidence, additional testing issuggested to confirm the result. Blood Venous blood specimen / Unknown 03/10/2024 2:08 PM EST 03/10/2024 3:56 PM EST Praneeth Vernon MD LAB BLOOD ORDERABLES Final Resul t [facility] [address] [place] [phone] * Lipid Panel, Standard (03/10/2024 2:03 PM EST) Triglycerides 47 <150 mg/dL [facility] Comment:Desirable Triglyceri de: less than 150 mg/dLBorderline High Triglyceride 150-199 mg/dLHigh Triglyceride: 200-499 mg/dLVery High Triglyceride: greater than or equal to 5OO mg/dL Cholesterol 125 <200 mg/dL [facility] Comment:Desirable Cholestero l: less than 200 mg/dLBorderline High Cholesterol: 200-239 mg/dLHigh Cholesterol: greater than 239 mg/dL LDL Cholesterol Calculated 58 <100 mg/dL [facility] Comment:Desirable LDL: less than 100 mg/dLNear Optimal/Above Optimal LDL: 110- 129 mg/dLBorderline High LDL: 130-159 mg/dLHigh LDL: 160-189 mg/dLVery High LDL: greater than or equal to 190 mg/dL HDL Cholesterol 58 >40 mg/dL [facility] Comment:Desirable HDL: great er than 40 mg/dL Note: This HDL assay may give artificially low results in patients with liver disease. Blood Venous blood specimen / Unknown 03/10/2024 2:03 PM EST 03/10/2024 3:56 PM EST Praneeth Vernon MD LAB BLOOD ORDERABLES Final Resul t [facility] [address] [place] [address] [phone] from Last 3 Months or Most Recently Relevant to Health Maintenance Insurance [facility] C[facility] Care Teams Scientific Associate Relationship Specialty Start Date End Date Name, MD Praneeth [address] [place] [address] PCP - General Internal Medicine 03/09/24 Anjelica Silva Industrial Safety And Health TechnicianFurniture Removalist 04/26/24
--- OUTSIDE RECORDS SUMMARY | 2024-06-29 12:21 | XMS_ITS | Encounter Summary ---
Author Organization [employer] Address [address] [facility] 7[address] [place] [address] Care Team Providers Care Bread Dumper Name Role Phone Name, Praneeth BERGERON Primary Care Provider [phone] Reason for Visit * Reason Comments Care Coordination [facility] f/u Encounter Details Date Type Department Care Team (Latest Contact Info) Description 06/27/2024 Patient Outreach [facility] MEDICINE [address] [place] [address] Name, MD Praneeth [address] [place] [address] Care Coordination ([facility] f/u) Social History Tobacco [...] encounter Progress Notes * Perla Forbes - 06/27/2024 10:09 AM EDT CHW Perla Forbes placed outbound call to patient for follow up on SDOH needs. Patient's name, DOBand address not confirmed. No answer at this time. CHW LVM reinforcing direct contact information for any additional questions or concerns and extended clinic hours on Mondays and Wednesdays, and Walk-In Urgent Care Located in [facility]. Patient provided with after-hours line for [facility], , which offer night time triage service and option to transfer to health and nutrition specialist provider if needed. CHW LVM discussing with the patient progress made in the CHW Program. Patient was notified in voicemail that they are being graduated from the Care Management-CHW Program. Voicemail also entailed education on how to receive SDOH services inthe future. documented in this encounter Plan of Treatment Not on file documented as of this encounter Visit Diagnoses Not on filedocumented in this encounter Additional Health Concerns Assessment Noted Time PHQ-9 Depression Total Score: 23 024 11:56 AM EST documented as of this encounter Care Teams Bread Dumper Relationship Specialty Start Date End Date Name, MD Praneeth [address] [place] [address] PCP - General Internal Medicine 03/09/24 Anjelica Silva Humanities And Languages ProfessorDigital Assistant 04/26/24 documented as of this encounter
== END 2024-06-29 11:01 | disposition home or self-care (01) ==
LOC: HO.MRI 11:00
PROVIDERS: PCP Internal Medicine Geriatric Medicine; Visit Provider Internal Medicine Geriatric Medicine
DX: R16.0 Hepatomegaly, not elsewhere classified (principal)
CPT/HCPCS: 74183; A9585

== ENCOUNTER 2024-07-04 14:44 | Outpatient (REF) | payer MEDICAID, SELFPAY ==
--- OUTSIDE RECORDS SUMMARY | 2024-07-04 17:49 | XMS_ITS | Encounter Summary ---
Author Organization [employer] Address [address] [facility] 7t [place] [address] Care Team Providers Care Client Relationship Manager Name Role Phone NamePraneeth MD Primary Care Provider [phone] Reason for Referral * Consultation (Urgent) - Authorized Specialty Diagnoses / Procedures [facility] To [facility] Oncology Diagnoses Hepatocellular carcinoma ([facility]/HCC) NamePraneeth MD [address] [place] [address] Phone: tel: fax: [address] Phone: tel: fax: Referral ID Status Reason Start Date Expiration Date Visits Requested Visits Authorized [id number] Authorized Specialty Services Required 06/30/2024 06/30/2025 6 6 Reason for Visit * Reason Onset Date Comments Referral 06/30/2024 Encounter Details Date Type Department Care Team (Late st Contact Info) Description 06/30/2024 Telephone [facility] [address] [place] [phone] Yuliya Guzman, tombstone erector Social History Tobacco Use Types Packs/Day Years [...] with others, in a hotel, in a correction, living outside on the street, on a [...] encounter Miscellaneous Notes * Telephone Encounter - Yuliya Guzman RN - 07/04/2024 9:38 AM EDT Tc to [facility] department to confirm if they received the referral which they reported they did. The sales receptionist states they are unable to schedule appt with us until the provider has reviewed the documents. The sales receptionist reports once the documents have been reviewed then they can schedule an appt with the provider. The sales receptionist states we could call back after 2 pm to see if pt can bescheduled at that time. * Telephone Encounter - Yuliya Guzman RN - 07/03/2024 10:07 AM EDT Tc to [facility] On[facility] department to follow up on urgent referral request to schedule appt for pt. No answer, lvm to return call and ask to speak to blue team nurses. * Telephone Encounter - Charo Wright - 06/30/2024 3:56 PM EDT Referral was faxed this morning at 11:00 am with confirmation received and re faxed again at 3:57 PM. Pending appt. * Telephone Encounter - Yuliya Guzman RN - 06/30/2024 3:32 PM EDT Tc to [facility] oncology to schedule pt for an appt. Marine Gear Keeper states they did not receive the fax andrequested for us to re fax again. Confirmed fax umber is [phone]. Message forwarded to teacher selection specialist for review. * Addendum Note - Praneeth Vasquez MD - 06/30/2024 10:26 AM EDTAddended by: PRANEETH VASQUEZ on: 06/30/2024 10:26 AM Modules accepted: Orders * Telephone Encounter - Praneeth Vasquez MD - 06/30/2024 10:22 AM EDT MRI abdomen 06/2024 LR-5 liver lesions. Test done at [facility]. I called PT and referred to oncology. I reminded to come to lab to check alphafetoprotein. When you can call [facility] oncology for the appt date sowe can call him. * Telephone Encounter - Yuliya Guzman RN - 06/30/2024 9:17 AM EDT Tc to pt per PCP I called the patient to go over the results. His phone is disconnected. I calledthe alternative number and spoke with his ex girlfriend. He is not living there anymore. She will leave him a message with his sister to call the [facility] with a contact number for us to call him . No answer and automated message states pt line is not in service. Pt is follow up with PCP prn. Incoming call from pt who reports they provided their updated phone number to the call center to place in their chart. Confirmed both number and pt reports those are the correct phone numbers uploaded. Pt advised their PCP will be giving them a call to go over their results with them. Pt expressed understanding and message forwarded to PCP for review. * Telephone Encounter - Yuliya Guzman RN - 06/30/2024 9:17 AM EDT ----- Message from Praneeth Vasquez MD sent at 06/30/2024 8:49 AM EDT ----- I called the patient to go over the results His phone is disconnected I called the alternative number and spoke with his ex girlfriend. He is not living there anymore. She will leave him a message with his sister to call the [facility] with a contact number for us to call him documented in this encounter Plan of Treatment Scheduled Referrals Name Type Priority Associated Diagnoses Orde r Schedule Referral to Oncology Outpatient Referral Urgent Hepatocellular carcinoma (CMS/HCC) Expected: 06/30/2024 (Approximate), Expires: 06/30/2025 documented as of this encounter Visit Diagnoses Diagnosis Hepatocellular carcinoma (CMS/HCC)- Primary Malignant neoplasm of liver, primary documented in this encounter Additional Health Concerns Assessment Noted Time PHQ-9 Depression Total Score: 23 024 11:56 AM EST documented as of this encounter Care Teams Client Relationship Manager Relationship Specialty Start Date End Date Name, MD Praneeth [address] [place] [address] PCP - General Internal Medicine 03/09/24 Anjelica Silva Cloth Cutting Machine OperatorMoisture Tester 04/26/24 documented as of this encounter
--- OUTSIDE RECORDS SUMMARY | 2024-07-04 17:49 | XMS_ITS | Clinical Summary ---
Author Organization [employer] Address [address] [facility] [address] [place] [address] Care Team Providers Care Supervisor [place] Name Role Phone Name, Praneeth BERGERON Primary Care Provider [phone] Allergies Active Allergy Reactions Criticality Noted Date [...] Encounters Date Type Department Care Team Description 06/30/2024 Telephone [facility] [place] [place] [address] Yuliya Guzman, export traffic department manager 06/27/2024 Patient Outreach [address] [address] Praneeth Vernon MD Care Coordination (SDNE f/u) 06/14/2024 Patient Outreach [address] [address] Praneeth Vernon MD Care Coordination (SDOH f/u) 2024 Population Health Risk Score [facility] (C3) Department [address] [place] [id number] Provider, Population Health Generic 05/18/2024 Telephone [facility] [place] [address] Praneeth Vernon MD DTA Form (I called [...] faxed to the DTA.) 05/18/2024 Patient Outreach [facility] [place] [place] [address] Praneeth Vernon MD Care Coordination (SDNE f/u) 05/12/2024 9:30 AM EST Office Visit [address] [address] Eulalia Kearney NP Hospital discharge follow-up (Primary Dx); Constipation, unspecified constipation type; H/O hernia repair 05/10/2024 Patient Outreach [address] [address] Praneeth Vernon MD Care Coordination (SDOH) 05/04/2024 Patient Outreach [address] [address] Praneeth Vernon MD Care Coordination (SDOH) 05/02/[address] [address] Jamison Ellison MA chartprep 05/01/[address] [address] Amanda Sanchez RN 04/27/[address] [address] Amanda Sanchez RN Error (VOID this visit) 04/27/2024 Telephone [facility] Information Management [address] [place] [address] Praneeth Vernon MD 04/27/[address] [address] Praneeth Vernon MD 04/26/[address] [address] Praneeth Vernon MD Care Coordination ([facility] ) 04/21/2024 Orders Only [facility] External Provider, [facility] 04/06/[address] [address] Trini Peterson MA feb recalls from Last 3 Months Immunizations Name Administration [...] with others, in a hotel, in a longterm, living outside on the street, on a [...] Procedure Name Priority Date/Time Associated Diagnosis Comments MR ABDOMEN W AND WO CONTRAST Routine 06/29/2024 11:08 AM EDT Liver mass CT ABDOMEN PELVIS WO CONTRAST Routine 04/21/2024 [...] Recently Relevant to Health Maintenance Results * MR Abdomen w/ and w/o Contrast (06/29/2024 11:08 AM EDT) Anatomical Region Laterality Modality Abdomen Magnetic Resonan ce 06/29/2024 11:0 8 AM EDT Narrative 06/29/2024 3:02 PM EDT ? [facility] ?[address] ?[place] [address] ? Magnetic Resonance Report ? Signed ? Patient: HeroAlexis ?MR#: [id number] ? : 1965 ?Acct:[id number] ? Age/Sex: 59 / M ?ADM Date: 06/29/24 ? Loc: HO.MRI ? Attending : Praneeth Vernon MD ? Ordering Physician: Name,Praneeth BERGERON ?? Date of Service: 06/29/24 ?? Procedure(s): MR abdomen wo/w con ?? Accession Number(s): [id number] ? cc: Name,Praneeth BERGERON ? EXAMINATION: ??MRI Abdomen without and with contrast ? HISTORY: liver mass cirrhosis of liver ? COMPARISON: ??Correlation is made with a CT of the abdomen and pelvis ?? without contrast dated 04/21/2024. ? TECHNIQUE: Axial in and out of phase T1-weighted gradient echo, axial ?? diffusion weighted, and axial and coronal HASTE T2 with fat saturation ?? images were obtained through the abdomen. ?? Subsequently, fat ?? suppressed axial and coronal T1-weighted images were obtained after the ?? intravenous administration of 9 mL Gadavist. ? FINDINGS: ??There is no significant loss of signal intensity within the ?? liver on opposed phase imaging to suggest steatosis. The liver ?? demonstrates a nodular contour, consistent with cirrhosis. Multiple ?? liver lesions are noted with imaging characteristics as described below: ? Lesion #: 1, corresponding to the lesion noted on CT. ?? Location: segment ?? Size: 2.0 cm ?? T2 signal intensity: Slightly increased ?? Arterial Phase Hyperenhancement (APHE): yes ?? Additional Major Features ?? Enhancing Capsule: yes ?? Nonperipheral washout: yes ?? Threshold Growth: no ?? LI-RADS Category: LR-5 Definitely HCC ? Lesion #: 2 ?? Location: segment ?? Size: 0.8 cm ?? T2 signal intensity: Not apparent ?? Arterial Phase Hyperenhancement (APHE): yes ?? Additional Major Features ?? Enhancing Capsule: no ?? Nonperipheral washout: no ?? Threshold Growth: no ?? LI-RADS Category: LR-3 Intermediate Probability of Malignancy ? Lesion #: 3 ?? Location: segment IV/VIII ?? Size: 6.5 x 3.1 x 2.2 cm ?? T2 signal intensity: Hyperintense ?? Arterial Phase Hyperenhancement (APHE): yes ?? Additional Major Features ?? Enhancing Capsule: yes ?? Nonperipheral washout: yes ?? Threshold Growth: no ?? LI-RADS Category: LR-5 Definitely HCC ? Lesion #: 4 ?? Location: segment VIII ?? Size: 0.8 cm ?? T2 signal intensity: Hyperintense ?? Arterial Phase Hyperenhancement (APHE): yes ?? Additional Major Features ?? Enhancing Capsule: no ?? Nonperipheral washout: yes ?? Threshold Growth: no ?? LI-RADS Category: LR-4 Probable HCC ? The hepatic and portal veins are patent. There is no intra or ?? extrahepatic biliary ductal dilatation. ? The gallbladder is unremarkable. The spleen is enlarged. No focal ?? splenic lesion is identified. The pancreas and adrenals are ?? unremarkable. There are bilateral renal cysts, the largest of which is ?? at the upper pole of the left kidney measuring 2.3 cm in size. No ?? retroperitoneal lymphadenopathy or ascites is identified in the upper ?? abdomen. The visualized bones demonstrate normal marrow signal ?? intensity. ? MR/MR abdomen wo/w con ?? IMPRESSION: ? Cirrhosis of the liver and splenomegaly. Multiple liver lesions as ?? described above ranging from definitely HCC to intermediate probability ?? of malignancy. These see detailed discussion above. ? Electronically signed by: ??Tejas Keen MD ??06/29/2024 02:59 PM EDT ? Dictated By: ?Tejas Keen MD ? Signed By: ?<Electronically signed by Tejas Keen MD in OV> ?06/29/24 1459 ? DD/ 1108 ? TD/TT: 06/29/24 1138 ? Leather Sponger: ? Procedure Note Tawanda, Image - 06/29/2024 [place] [address] Magnetic Resonance Report Signed Patient: Claudy Monahan#: [id number] : 1965Acct:[id number] Age/Sex: 59 / MADM Date: 06/29/24 Loc: .MRI Attending Dr: Praneeth Vernon MD Ordering Physician: Praneeth Vernon MD Date of Service: 06/29/24 Procedure(s): MR abdomen wo/w con Accession Number(s): [id number] cc: Praneeth Vernon MD EXAMINATION: MRI Abdomen without and with contrast HISTORY: liver mass cirrhosis of liver COMPARISON: Correlation is made with a CT of the abdomen and pelvis without contrast dated 04/21/2024. TECHNIQUE: Axial in and out of phase T1-weighted gradient echo, axial diffusion weighted, and axial and coronal HASTE T2 with fat saturation images were obtained through the abdomen. Subsequently, fat suppressed axial and coronal T1-weighted images were obtained after the intravenous administration of 9 mL Gadavist. FINDINGS: There is no significant loss of signal intensity within the liver on opposed phase imaging to suggest steatosis. The liver demonstrates a nodular contour, consistent with cirrhosis. Multiple liver lesions are noted with imaging characteristics as described below: Lesion #: 1, corresponding to the lesion noted on CT. Location: segment Size: 2.0 cm T2 signal intensity: Slightly increased Arterial Phase Hyperenhancement (APHE): yes Additional Major Features Enhancing Capsule: yes Nonperipheral washout: yes Threshold Growth: no LI-RADS Category: LR-5 Definitely HCC Lesion #: 2 Location: segment Size: 0.8 cm T2 signal intensity: Not apparent Arterial Phase Hyperenhancement (APHE): yes Additional Major Features Enhancing Capsule: no Nonperipheral washout: no Threshold Growth: no LI-RADS Category: LR-3 Intermediate Probability of Malignancy Lesion #: 3 Location: segment IV/VIII Size: 6.5 x 3.1 x 2.2 cm T2 signal intensity: Hyperintense Arterial Phase Hyperenhancement (APHE): yes Additional Major Features Enhancing Capsule: yes Nonperipheral washout: yes Threshold Growth: no LI-RADS Category: LR-5 Definitely HCC Lesion #: 4 Location: segment VIII Size: 0.8 cm T2 signal intensity: Hyperintense Arterial Phase Hyperenhancement (APHE): yes Additional Major Features Enhancing Capsule: no Nonperipheral washout: yes Threshold Growth: no LI-RADS Category: LR-4 Probable HCC The hepatic and portal veins are patent. There is no intra or extrahepatic biliary ductal dilatation. The gallbladder is unremarkable. The spleen is enlarged. No focal splenic lesion is identified. The pancreas and adrenals are unremarkable. There are bilateral renal cysts, the largest of which is at the upper pole of the left kidney measuring 2.3 cm in size. No retroperitoneal lymphadenopathy or ascites is identified in the upper abdomen. The visualized bones demonstrate normal marrow signal intensity. MR/MR abdomen wo/w con IMPRESSION: Cirrhosis of the liver and splenomegaly. Multiple liver lesions as described above ranging from definitely HCC to intermediate probability of malignancy. These see detailed discussion above. Electronically signed by: Tejas Keen MD 06/29/2024 02:59 PM EDT RP Dictated By: Tejas Keen MD Signed By: <Electronically signed by Tejas Keen MD in OV> 06/29/24 1459 DD/ 1108 TD/TT: 06/29/24 1138 Leather Sponger: us Praneeth Janeen BERGERON IMG MRI PROCEDURES Edited Result - Final * CT Abdomen Pelvis w/o Contrast (04/21/2024 9:47 AM EST) Anatomical Region Laterality Modality Body, Pelvis, Abdomen Computed T omography 04/21/2024 9:47 AM EST Narrative 04/21/2024 10:33 AM EST ? [facility] ?[address] ?[place] [address] ? CT Scan Report ? Signed ? Patient: Monahan,Alexis ?MR#: [id number] ? : 1965 ?Acct:[id number] ? Age/Sex: 58 / M ?ADM Date: 04/21/24 ? Loc: HO.CT ? Attending Dr: Bryce Maloney MD ? Ordering Physician: Bryce Maloney MD ?? Date of Service: 04/21/24 ?? Procedure(s): CT abdomen pelvis wo IV con ?? Accession Number(s): [id number] ? cc: Bryce Maloney MD; Name,Praneeth BERGERON ? Report Number: ?? [id number]: Total DLP = ??541.00 mGy-cm ?? EXAMINATION: [...] ??04/21/2024 10:30 AM EST RP ?? Workstation: [id number] ? Dictated By: ?Michael Mercer MD ? Signed By: ?<Electronically signed by Michael Mercer MD in OV> ?04/21/24 1030 ? DD/ 0947 ? TD/TT: 04/21/24 0955 ? Leather Sponger: ? Procedure Note Slim Neff - 04/21/[address] [address] [address] Scan Report Signed Patient: Claudy Monahan#: [id number] : 1965Acct:[id number] Age/Sex: 58 / MADM Date: 04/21/24 Loc: HO.CT Attending Dr: Bryce Maloney MD Ordering Physician: Bryce Maloney MD Date of Service: 04/21/24 Procedure(s): CT abdomen pelvis wo IV con Accession Number(s): [id number] cc: Bryce Maloney MD; Name,Prnaeeth Report Number: [id number]: Total DLP = 541.00 mGy-cm EXAMINATION: CT [...] by: Michael Mercer MD 04/21/2024 10:30 AM EST Dictated By: Michael Mercer MD Signed By: <Electronically signed by Michael Mercer MD in OV> 04/21/24 1030 DD/ 0947 TD/TT: 04/21/24 0955 Leather Sponger: [facility] External Provider IMG CT PROCEDURES Final Result * HIV-1/2 Antigen and Antibodies, Fourth Generation, with Reflexes (03/10/2024 2:08 PM EST) HIV AB/AG Nonreactive Nonreactive [facility] Comment:HIV-1 p24 Ag and/or HIV-1/HIV-2 Ab not detected.A test result that is nonreactive does not exclude thepossibility of exposure to or infection with HIV-1 and/orHIV-2. Nonreactive results in this assay for individualswith prior exposure to HIV-1 and/or HIV-2 may be due toantigen and antibody levels that are below the limit ofdetection of this assay.[employer] HIV Ag/Ab Combo assay result andsupplemental assay results should be interpreted inconjunction with the patient's clinical presentation,history and other laboratory results. If the results areinconsistent with clinical evidence, additional testing issuggested to confirm the result. Blood Venous blood specimen / Unknown 03/10/2024 2:08 PM EST 03/10/2024 3:56 PM EST us Praneeth Name LAB BLOOD ORDERABLES Final Resul t [facility] [address] [place] [phone] * Lipid Panel, Standard (03/10/2024 2:03 PM EST) Pathologist [facility] Triglycerides 47 <150 mg/dL [facility] Comment:Desirable Triglyceri de: less than 150 mg/dLBorderline High Triglyceride 150-199 mg/dLHigh Triglyceride: 200-499 mg/dLVery High Triglyceride: greater than or equal to 5OO mg/dL Cholesterol 125 <200 mg/dL [facility] Comment:Desirable Cholestero l: less than 200 mg/dLBorderline High Cholesterol: 200-239 mg/dLHigh Cholesterol: greater than 239 mg/dL LDL Cholesterol Calculated 58 <100 mg/dL [facility] Comment:Desirable LDL: less than 100 mg/dLNear Optimal/Above Optimal LDL: 110- 129 mg/dLBorderline High LDL: 130-159 mg/dLHigh LDL: 160-189 mg/dLVery High LDL: greater than or equal to 190 mg/dL HDL Cholesterol 58 >40 mg/dL [facility] Comment:Desirable HDL: great er than 40 mg/dL Note: This HDL assay may give artificially low results in patients with liver disease. Blood Venous blood specimen / Unknown 03/10/2024 2:03 PM EST 03/10/2024 3:56 PM EST us Praneeth Vernon MD LAB BLOOD ORDERABLES Final Resul t [facility] [address] [place] [address] [phone] from Last 3 Months or Most Recently Relevant to Health Maintenance Insurance [employer]3 Care Teams Supervisor [place] Relationship Specialty Start Date End Date Name, MD Praneeth [address] [place] [id number] PCP - General Internal Medicine 03/09/24 Anjelica Silva [employer] SpecialistOperator [employer]yst Concentration 04/26/24
[2024-07-05 12:43] LABS: Alpha Fetoprotein 87.8 ng/mL (<6.1)
== END 2024-07-04 14:45 | disposition home or self-care (01) ==
LOC: HO.HHCL 14:44
PROVIDERS: Visit Provider Internal Medicine Geriatric Medicine
DX: K74.60 Unspecified cirrhosis of liver (principal); R16.0 Hepatomegaly, not elsewhere classified
CPT/HCPCS: 36415; 82105

== ENCOUNTER → 2024-07-20 14:40 | Outpatient (BNV) | payer MEDICAID, SELFPAY | PROVIDERS: PCP Internal Medicine Geriatric Medicine; Referring Provider Internal Medicine Geriatric Medicine; Visit Provider Internal Medicine | DX: C22.0 Liver cell carcinoma (principal) | CPT/HCPCS: 99205 ==